=== PATIENT | female | born 1965 | race Caucasian/White ===

== ENCOUNTER 2017-11-16 09:36 | Inpatient (IN) | payer MEDICARE ==
[~2017-11-16] VITALS: Ht 160 cm; Wt 54.1 kg
[2017-11-16 10:29] LABS: HEMATOCRIT 42.7 % (36.0-47.0); HEMOGLOBIN 13.8 g/dL (12.0-15.5); MEAN CORPUSCULAR HEMOGLOBIN 32 pg (25-35); MEAN CORPUSCULAR HGB CONC 32 g/dL (31-37); MEAN CORPUSCULAR VOLUME 97 fL (79-100); PLATELET COUNT 286 x10^3/uL (140-400); RED BLOOD COUNT 4.38 x10^6/uL (3.50-5.40); RED CELL DISTRIBUTION WIDTH 13.6 % (11.5-14.5); WHITE BLOOD COUNT 8.8 x10^3/uL (4.0-11.0)
[2017-11-16 10:37] LABS: ALBUMIN 3.8 g/dL (3.4-5.0); ALBUMIN/GLOBULIN RATIO 1.2 (1.0-1.7); CALCIUM 9.1 mg/dL (8.5-10.1); CREATININE 0.8 mg/dL (0.6-1.0); GFR 74.7; MAGNESIUM 1.8 mg/dL (1.8-2.4); POTASSIUM 3.7 mmol/L (3.5-5.1); TOTAL BILIRUBIN 0.3 mg/dL (0.2-1.0)
[2017-11-16 10:41] LABS: % BASOS 3 % (0-3); % EOS 1 % (0-5); % LYMPHS 33 % (24-48); % MONOS 7 % (0-10); % SEGS 56 % (35-66)
[2017-11-16 10:42] LABS: PLT ESTIMATE ADEQUATE (ADEQUATE)
--- NOTE | 2017-11-16 11:04 | EKG ---
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
[2017-11-16 11:09] LABS: BARBITURATES NEG (NEG); BENZODIAZEPINES NEG (NEG); CANNABINOIDS NEG (NEG); COCAINE NEG (NEG); METHADONE NEG (NEG); OPIATES NEG (NEG); PHENCYCLIDINE NEG (NEG)
[2017-11-16 11:11] LABS: BACTERIA,URINE FEW /HPF (0-FEW); BILIRUBIN,URINE NEG (NEG); CLARITY,URINE HAZY; COLOR,URINE YELLOW; GLUCOSE,URINE NEG (NEG); NITRITE,URINE NEG (NEG); RBC,URINE RARE /HPF (0-2); SQUAMOUS EPITHELIAL CELL,UR FEW /LPF; UROBILINOGEN,URINE 0.2 mg/dL (0.2 mg/dL)
[2017-11-16 11:12] LABS: AMPHETAMINE/METHAMPHETAMINE NEG (NEG)
--- NOTE | 2017-11-16 15:10 | PHYS DOC ---
Past History Past Medical History: Schizophrenia, Other Past Surgical History: Alcohol Use: None Drug Use: None Adult General Chief Complaint Chief Complaint: Neads medical clearance HPI HPI 52-year-old female patient was seen at [facility] today and sent to ER for medical clearance to admit to [facility] regarding increasing of psychosis. History is limited because of patient psychiatric problem but she stated she lives with his sister and her sister called police this morning because she had arguments with her and [facility] recommended she goes to inpatient treatment. Patient denies taking any medication and having any psych problem. Patient has flight of idea and talking about nonsense subjects butt denies hallucination and suicidal and homicidal ideation. Review of Systems Review of Systems Constitutional: Denies fever or chills [] Eyes: Denies change in visual acuity, redness, or eye pain [] HENT: Denies nasal congestion or sore throat [] Respiratory: Denies cough or shortness of breath [] Cardiovascular: No additional information not addressed in HPI [] GI: Denies abdominal pain, nausea, vomiting, bloody stools or diarrhea [] : Denies dysuria or hematuria [] Musculoskeletal: Denies back pain or joint pain [] Integument: Denies rash or skin lesions [] Neurologic: Denies headache, focal weakness or sensory changes [] Endocrine: Denies polyuria or polydipsia [] All other systems were reviewed and found to be within normal limits, except as documented in this note. Allergies Allergies Allergies Coded Allergies Type Severity Reaction Last Updated Verified No Known Drug Allergies 08/22/15 No Physical Exam Physical Exam Constitutional: Well nourished, no acute distress, non-toxic appearance, anxious. [] HENT: Normocephalic, atraumatic, bilateral external ears normal, oropharynx moist, no oral exudates, nose normal. [] Eyes: PERRLA, EOMI, conjunctiva normal, no discharge. [] Neck: Normal range of motion, no tenderness, supple, no stridor. [] Cardiovascular:Heart rate regular rhythm, no murmur [] Lungs & Thorax: Bilateral breath sounds clear to auscultation [] Abdomen: Bowel sounds normal, soft, no tenderness, no masses, no pulsatile masses. [] Skin: Warm, dry, no erythema, no rash. [] Back: No tenderness, no CVA tenderness. [] Extremities: No tenderness, no cyanosis, no clubbing, ROM intact, no edema. [] Neurologic: Alert and oriented X 3, normal motor function, normal sensory function, no focal deficits noted. [] Psychologic: Anxious, loss of idea, paranoid, psychosis Current Patient Data Vital Signs Vital Signs Date Time Temp Pulse Resp B/P (MAP) Pulse Ox O2 Delivery O2 Flow Rate FiO2 11/16/17 09:45 97.7 94 22 99 Room Air Lab Results Laboratory Tests Test 11/16/17 10:05 11/16/17 10:45 White Blood Count 8.8 x10^3/uL (4.0-11.0) Red Blood Count 4.38 x10^6/uL (3.50-5.40) Hemoglobin 13.8 g/dL (12.0-15.5) Hematocrit 42.7 % (36.0-47.0) Mean Corpuscular Volume 97 fL (79-100) Mean Corpuscular Hemoglobin 32 pg (25-35) Mean Corpuscular Hemoglobin Concent 32 g/dL (31-37) Red Cell Distribution Width 13.6 % (11.5-14.5) Platelet Count 286 x10^3/uL (140-400) Segmented Neutrophils % 56 % (35-66) Lymphocytes % 33 % (24-48) Monocytes % 7 % (0-10) Eosinophils % 1 % (0-5) Basophils % 3 % (0-3) Platelet Estimate Adequate (ADEQUATE) Large Platelets Occ Giant Platelets Occ Sodium Level 141 mmol/L (136-145) Potassium Level 3.7 mmol/L (3.5-5.1) Chloride Level 105 mmol/L (98-107) Carbon Dioxide Level 27 mmol/L (21-32) Anion Gap 9 (6-14) Blood Urea Nitrogen 9 mg/dL (7-20) Creatinine 0.8 mg/dL (0.6-1.0) Estimated GFR (Cockcroft-Gault) 74.7 BUN/Creatinine Ratio 11 (6-20) Glucose Level 99 mg/dL (70-99) Calcium Level 9.1 mg/dL (8.5-10.1) Magnesium Level 1.8 mg/dL (1.8-2.4) Total Bilirubin 0.3 mg/dL (0.2-1.0) Aspartate Amino Transferase (AST) 14 U/L (15-37) L Alanine Aminotransferase (ALT) 15 U/L (14-59) Alkaline Phosphatase 81 U/L (46-116) Total Protein 7.0 g/dL (6.4-8.2) Albumin 3.8 g/dL (3.4-5.0) Albumin/Globulin Ratio 1.2 (1.0-1.7) Ethyl Alcohol Level < 10 mg/dL (0-10) Urine Collection Type Unknown Urine Color Yellow Urine Clarity Hazy Urine pH 5.5 Urine Specific [place] 1.015 Urine Protein Neg (NEG-TRACE) Urine Glucose (UA) Neg mg/dL (NEG) Urine Ketones (Stick) Neg mg/dL (NEG) Urine Blood Neg (NEG) Urine Nitrite Neg (NEG) Urine Bilirubin Neg (NEG) Urine Urobilinogen Dipstick 0.2 mg/dL (0.2 mg/dL) Urine Leukocyte Esterase Trace (NEG) Urine RBC Rare /HPF (0-2) Urine WBC 1-4 /HPF (0-4) Urine Squamous Epithelial Cells Few /LPF Urine Bacteria Few /HPF (0-FEW) Urine Mucus Slight /LPF Urine Opiates Screen Neg (NEG) Urine Methadone Screen Neg (NEG) Urine Barbiturates Neg (NEG) Urine Phencyclidine Screen Neg (NEG) Urine Amphetamine/Methamphetamine Neg (NEG) Urine Benzodiazepines Screen Neg (NEG) Urine Cocaine Screen Neg (NEG) Urine Cannabinoids Screen Neg (NEG) Urine Ethyl Alcohol Neg (NEG) EKG EKG [] Radiology/Procedures Radiology/Procedures [] Course & Med Decision Making Course & Med Decision Making Pertinent Labs studies reviewed. (See chart for details) Evaluation of patient in ER showed 52-year-old female patient sent from [facility] for medical clearance with having placement in [facility] in [facility] but constant but [facility] staff states they don 't have any beds for this patient or any contact from [facility]. Patient had unremarkable physical exam except for psychosis and paranoia. Labs was unremarkable. Patient was evaluated by Tele psych[ with suggestion of inpatient admission. [facility] Patient informed about plan of care and agreed with hospitalization. Dragon Disclaimer Dragon Disclaimer This electronic medical record was generated, in whole or in part, using a voice recognition dictation system. Departure Departure: Impression: Primary Impression: Delusion Additional Impression: Paranoia Disposition: 02 XFER SHT-TRM HOSP ([facility]) Condition: IMPROVED Referrals: ZEUS MOMIN MD (PCP) Problem Qualifiers ADDISON HOANG MD Nov 16, 2017 15:10
[2017-11-16] MEDS ORDERED: METHYL SALICYLATE/MENTHOL TOPICAL OINTMENT 29GM TUBE. TP PRN (17:00)
[2017-11-16] MEDS ORDERED: MAG HYDROX/AL HYDROX/SIMETH 30 ML ORAL.SUSP PO PRN (17:00)
[2017-11-16] MEDS ORDERED: MAGNESIUM HYDROXIDE 2,400 MG/30 ML ORAL.SUSP. PO PRN (17:00)
[2017-11-16] MEDS ORDERED: ACETAMINOPHEN 325 MG TABLET PO PRN (17:00)
[2017-11-16 17:02] VITALS: BP 99/61
--- NOTE | 2017-11-16 17:27 | PDOC ---
Exam Note: Mario Note: Please also refer to the separate dictated note~for this date of service dictated separately.~Patient seen individually. Discussed the patient with Nursing staff reviewed the chart.~Reviewed interim history and current functioning. Reviewed vital signs,~Labs/ Radiology~and current medications noted below. Continue current treatment with the changes noted in the dictated addendum note Assessment: Vital Signs: Vital Signs Date Time Temp Pulse Resp B/P (MAP) Pulse Ox O2 Delivery O2 Flow Rate FiO2 11/16/17 17:02 97.7 97 18 99/61 (74) 97 Room Air Labs: Laboratory Tests Test 11/16/17 10:05 11/16/17 10:45 White Blood Count 8.8 x10^3/uL (4.0-11.0) Red Blood Count 4.38 x10^6/uL (3.50-5.40) Hemoglobin 13.8 g/dL (12.0-15.5) Hematocrit 42.7 % (36.0-47.0) Mean Corpuscular Volume 97 fL (79-100) Mean Corpuscular Hemoglobin 32 pg (25-35) Mean Corpuscular Hemoglobin Concent 32 g/dL (31-37) Red Cell Distribution Width 13.6 % (11.5-14.5) Platelet Count 286 x10^3/uL (140-400) Segmented Neutrophils % 56 % (35-66) Lymphocytes % 33 % (24-48) Monocytes % 7 % (0-10) Eosinophils % 1 % (0-5) Basophils % 3 % (0-3) Platelet Estimate Adequate (ADEQUATE) Large Platelets Occ Giant Platelets Occ Sodium Level 141 mmol/L (136-145) Potassium Level 3.7 mmol/L (3.5-5.1) Chloride Level 105 mmol/L (98-107) Carbon Dioxide Level 27 mmol/L (21-32) Anion Gap 9 (6-14) Blood Urea Nitrogen 9 mg/dL (7-20) Creatinine 0.8 mg/dL (0.6-1.0) Estimated GFR (Cockcroft-Gault) 74.7 BUN/Creatinine Ratio 11 (6-20) Glucose Level 99 mg/dL (70-99) Calcium Level 9.1 mg/dL (8.5-10.1) Magnesium Level 1.8 mg/dL (1.8-2.4) Total Bilirubin 0.3 mg/dL (0.2-1.0) Aspartate Amino Transferase (AST) 14 U/L (15-37) L Alanine Aminotransferase (ALT) 15 U/L (14-59) Alkaline Phosphatase 81 U/L (46-116) Total Protein 7.0 g/dL (6.4-8.2) Albumin 3.8 g/dL (3.4-5.0) Albumin/Globulin Ratio 1.2 (1.0-1.7) Ethyl Alcohol Level < 10 mg/dL (0-10) Urine Collection Type Unknown Urine Color Yellow Urine Clarity Hazy Urine pH 5.5 Urine Specific [place] 1.015 Urine Protein Neg (NEG-TRACE) Urine Glucose (UA) Neg mg/dL (NEG) Urine Ketones (Stick) Neg mg/dL (NEG) Urine Blood Neg (NEG) Urine Nitrite Neg (NEG) Urine Bilirubin Neg (NEG) Urine Urobilinogen Dipstick 0.2 mg/dL (0.2 mg/dL) Urine Leukocyte Esterase Trace (NEG) Urine RBC Rare /HPF (0-2) Urine WBC 1-4 /HPF (0-4) Urine Squamous Epithelial Cells Few /LPF Urine Bacteria Few /HPF (0-FEW) Urine Mucus Slight /LPF Urine Opiates Screen Neg (NEG) Urine Methadone Screen Neg (NEG) Urine Barbiturates Neg (NEG) Urine Phencyclidine Screen Neg (NEG) Urine Amphetamine/Methamphetamine Neg (NEG) Urine Benzodiazepines Screen Neg (NEG) Urine Cocaine Screen Neg (NEG) Urine Cannabinoids Screen Neg (NEG) Urine Ethyl Alcohol Neg (NEG) Current Medications: Meds: Current Medications Acetaminophen (Tylenol) 650 mg PRN Q6HRS PRN PO PAIN / TEMP; Start 11/16/17 at 17:00 Multi-Ingredient Ointment (Analgesic [place]) 1 raymon PRN QID PRN TP MUSCLE PAIN; Start 11/16/17 at 17:00 Al Hydroxide/Mg Hydroxide (Mylanta Plus Xs) 15 ml PRN AFTMEALHC PRN PO DYSPEPSIA; Start 11/16/17 at 17:00 Magnesium Hydroxide (Milk Of Magnesia) 2,400 mg PRN QHS PRN PO CONSTIPATION; Start 11/16/17 at 17:00 Nicotine (Nicoderm Cq 21mg) 1 patch DAILY TD ; Start 11/17/17 at 09:00 I have reviewed the current psychotropics carefully including drug interactions. Risk benefit ratio favors no change other than as noted in my dictated progress note. Diagnosis: Problems: (1) Anxiety disorder (2) Schizoaffective disorder, chronic condition with acute exacerbation (3) Bipolar 1 disorder, mixed, moderate PERRY ALFARO MD Nov 16, 2017 17:27
[2017-11-16] MEDS ORDERED: traZODone 50 MG TABLET. PO PRN (17:45)
--- NOTE | 2017-11-16 20:03 | PDOC ---
Exam Note: Mario Note: Please also refer to the separate dictated note~for this date of service dictated separately.~Patient seen individually. Discussed the patient with Nursing staff reviewed the chart.~Reviewed interim history and current functioning. Reviewed vital signs,~Labs/ Radiology~and current medications noted below. Continue current treatment with the changes noted in the dictated addendum note Assessment: Vital Signs: Vital Signs Date Time Temp Pulse Resp B/P (MAP) Pulse Ox O2 Delivery O2 Flow Rate FiO2 11/16/17 17:02 97.7 97 18 99/61 (74) 97 Room Air Labs: Laboratory Tests Test 11/16/17 10:05 11/16/17 10:45 White Blood Count 8.8 x10^3/uL (4.0-11.0) Red Blood Count 4.38 x10^6/uL (3.50-5.40) Hemoglobin 13.8 g/dL (12.0-15.5) Hematocrit 42.7 % (36.0-47.0) Mean Corpuscular Volume 97 fL (79-100) Mean Corpuscular Hemoglobin 32 pg (25-35) Mean Corpuscular Hemoglobin Concent 32 g/dL (31-37) Red Cell Distribution Width 13.6 % (11.5-14.5) Platelet Count 286 x10^3/uL (140-400) Segmented Neutrophils % 56 % (35-66) Lymphocytes % 33 % (24-48) Monocytes % 7 % (0-10) Eosinophils % 1 % (0-5) Basophils % 3 % (0-3) Platelet Estimate Adequate (ADEQUATE) Large Platelets Occ Giant Platelets Occ Sodium Level 141 mmol/L (136-145) Potassium Level 3.7 mmol/L (3.5-5.1) Chloride Level 105 mmol/L (98-107) Carbon Dioxide Level 27 mmol/L (21-32) Anion Gap 9 (6-14) Blood Urea Nitrogen 9 mg/dL (7-20) Creatinine 0.8 mg/dL (0.6-1.0) Estimated GFR (Cockcroft-Gault) 74.7 BUN/Creatinine Ratio 11 (6-20) Glucose Level 99 mg/dL (70-99) Calcium Level 9.1 mg/dL (8.5-10.1) Magnesium Level 1.8 mg/dL (1.8-2.4) Total Bilirubin 0.3 mg/dL (0.2-1.0) Aspartate Amino Transferase (AST) 14 U/L (15-37) L Alanine Aminotransferase (ALT) 15 U/L (14-59) Alkaline Phosphatase 81 U/L (46-116) Total Protein 7.0 g/dL (6.4-8.2) Albumin 3.8 g/dL (3.4-5.0) Albumin/Globulin Ratio 1.2 (1.0-1.7) Ethyl Alcohol Level < 10 mg/dL (0-10) Urine Collection Type Unknown Urine Color Yellow Urine Clarity Hazy Urine pH 5.5 Urine Specific [place] 1.015 Urine Protein Neg (NEG-TRACE) Urine Glucose (UA) Neg mg/dL (NEG) Urine Ketones (Stick) Neg mg/dL (NEG) Urine Blood Neg (NEG) Urine Nitrite Neg (NEG) Urine Bilirubin Neg (NEG) Urine Urobilinogen Dipstick 0.2 mg/dL (0.2 mg/dL) Urine Leukocyte Esterase Trace (NEG) Urine RBC Rare /HPF (0-2) Urine WBC 1-4 /HPF (0-4) Urine Squamous Epithelial Cells Few /LPF Urine Bacteria Few /HPF (0-FEW) Urine Mucus Slight /LPF Urine Opiates Screen Neg (NEG) Urine Methadone Screen Neg (NEG) Urine Barbiturates Neg (NEG) Urine Phencyclidine Screen Neg (NEG) Urine Amphetamine/Methamphetamine Neg (NEG) Urine Benzodiazepines Screen Neg (NEG) Urine Cocaine Screen Neg (NEG) Urine Cannabinoids Screen Neg (NEG) Urine Ethyl Alcohol Neg (NEG) Current Medications: Meds: Current Medications Acetaminophen (Tylenol) 650 mg PRN Q6HRS PRN PO PAIN / TEMP; Start 11/16/17 at 17:00 Multi-Ingredient Ointment (Analgesic [place]) 1 raymon PRN QID PRN TP MUSCLE PAIN; Start 11/16/17 at 17:00 Al Hydroxide/Mg Hydroxide (Mylanta Plus Xs) 15 ml PRN AFTMEALHC PRN PO DYSPEPSIA; Start 11/16/17 at 17:00 Magnesium Hydroxide (Milk Of Magnesia) 2,400 mg PRN QHS PRN PO CONSTIPATION; Start 11/16/17 at 17:00 Nicotine (Nicoderm Cq 21mg) 1 patch DAILY TD ; Start 11/17/17 at 09:00 Ziprasidone (Geodon) 20 mg QHS PO Last administered on 11/16/17t 19:54; Start 11/16/17 at 21:00; Stop 11/17/17 at 05:00 Ziprasidone (Geodon) 40 mg QHS PO ; Start 11/17/17 at 21:00 Olanzapine (ZyPREXA ZYDIS) 5 mg PRN Q2HR PRN PO psychosis; Start 11/16/17 at 17:45 Trazodone HCl (Desyrel) 50 mg PRN QHS PRN PO insomnia ; Start 11/16/17 at 17: 45 I have reviewed the current psychotropics carefully including drug interactions. Risk benefit ratio favors no change other than as noted in my dictated progress note. Diagnosis: Problems: (1) Schizophrenia (2) Paranoia (3) Delusion (4) Anxiety disorder (5) Schizoaffective disorder, chronic condition with acute exacerbation (6) Bipolar 1 disorder, mixed, moderate PERRY ALFARO MD Nov 16, 2017 20:03
[2017-11-16] MEDS ORDERED: ZIPRASIDONE 20 MG CAPSULE. PO SCH (21:00)
--- NOTE | 2017-11-16 21:46 | HP ---
ADMIT DATE: 11/16/2017 PSYCHIATRIC ADMISSION HISTORY/EVALUATION IDENTIFYING DATA: The patient is a 52-year-old female who was referred to us from the Emergency Room at [facility] where she presented directly from the [facility] after she went there on account of worsening psychotic symptoms while living at home with her sister. Reportedly, the patient has not been taking her antipsychotic medications for the past 1 year or so and more recently getting increasingly paranoid, delusional, specifically about family and burials amongst other things. She has been disorganized, forgetful. Behaviors have been deemed dangerous, has failed outpatient psychiatric interventions due to noncompliance, referred for inpatient psychiatric stabilization. CHIEF COMPLAINT: "I am on disability. 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 HISTORY OF PRESENT ILLNESS: The patient has a history of schizoaffective disorder, bipolar type versus bipolar disorder versus schizophrenia. She had been followed at the [facility] by Dr. Pond in the past, but has not been back for a couple of years. She has been living at home with her sister, barely functioning, but over the past few weeks, she has been increasingly psychotic. She has lost about 15-pound weight, having increasing insomnia, disorganization. No active suicidal or homicidal ideation. The patient continues to have some mood swings. PAST PSYCHIATRIC HISTORY: The patient states she has been treated on Geodon and Abilify in the past amongst other psychotropics, but we will have to request records from the [facility] for details. PAST MEDICAL HISTORY: Positive for . DRUG ALLERGIES: Negative. CURRENT PSYCHOTROPICS: None at this time. FAMILY HISTORY: Noncontributory. SOCIAL HISTORY: No alcohol, drug abuse, physical, sexual or elder abuse history, not known to be a perpetrator. REACTION TO HOSPITALIZATION: The patient accepting of these assets cognitively reasonably intact, supportive sister. MENTAL STATUS EXAMINATION: The patient seen individually in her room shortly after she arrived on the unit. She is oriented to time, place, situation, quite disorganized, paranoid, suspicious. Associations somewhat loose, at times tangential. Speech is otherwise coherent. Abstraction fair, computation impaired, language function intact. Attention span short. No active suicidal or homicidal ideation. LABORATORY DATA: Reviewed. IMPRESSION: Bipolar 1 disorder, mixed with psychotic features; psychotic disorder, unspecified; delusional disorder; anxiety disorder, unspecified. Rest diagnoses as above. PLAN: Admit to Geropsychiatry unit at [facility]. I will see the patient daily individually from a psychiatric standpoint, medical followup per Dr. Valle/Dr. Reyes. [facility]. Start Geodon 20 mg at bedtime per day, increasing to 40 mg p.o. at bedtime starting tomorrow. We will increase further thereafter. Add trazodone 50 mg at bedtime p.r.n. insomnia, may repeat x 1. Zyprexa 2.5 mg q. 2 hours p.r.n. psychosis, agitation, maximum 10 mg in 24 hours. Consider Depakote as a mood stabilizer. Further decisions after baseline assessment and records from the [facility]. MAN Thad ALFARO MD DR: DEREK/jenna JOB#: [id number] / [id number]
[2017-11-17 01:07] LABS: HEMOGLOBIN A1C 5.1 % (4.8-5.6); T3 TOTAL 87 ng/dL (71-180); THYROXINE 6.6 ug/dL (4.5-12.0)
[2017-11-17 05:49] VITALS: BP 102/42
[2017-11-17] MEDS: NICOTINE 21MG PATCH. TD SCH (08:44)
[2017-11-17] MEDS ORDERED: PNEUMOCOCCAL VAX SCREEN. MC ONE (09:00)
[2017-11-17] MEDS ORDERED: PNEUMOC CONJ VACC 23-VALENT 0.5 ML VIAL. VAX IM ONE (09:00)
[2017-11-17] MEDS ORDERED: FLU VACC QS2017-18 (36MOS+)/PF 0.5 ML SYRINGE. VAX IM ONE (09:00)
[2017-11-17] MEDS ORDERED: Influenza vaccine per PROTOCOL. MC PRN (09:00)
[2017-11-17 15:33] VITALS: BP 105/64
[2017-11-17] MEDS ORDERED: IOHEXOL 300 MG/ML 75 ML VIAL. IV ONE (16:30)
[2017-11-17] MEDS: ZIPRASIDONE 40 MG CAPSULE. PO SCH (20:18)
--- NOTE | 2017-11-17 21:18 | PDOC ---
Exam Note: Mario Note: Please also refer to the separate dictated note~for this date of service dictated separately.~Patient seen individually. Discussed the patient with Nursing staff reviewed the chart.~Reviewed interim history and current functioning. Reviewed vital signs,~Labs/ Radiology~and current medications noted below. Continue current treatment with the changes noted in the dictated addendum note Assessment: Vital Signs: Vital Signs Date Time Temp Pulse Resp B/P (MAP) Pulse Ox O2 Delivery O2 Flow Rate FiO2 11/17/17 15:33 97.5 89 20 105/64 (78) 100 11/16/17 17:02 Room Air I&O Intake and Output 11/17/17 07:00 Intake Total 481 ml Balance 481 ml Intake Oral 481 ml Current Medications: Meds: Current Medications Acetaminophen (Tylenol) 650 mg PRN Q6HRS PRN PO PAIN / TEMP; Start 11/16/17 at 17:00 Multi-Ingredient Ointment (Analgesic [place]) 1 raymon PRN QID PRN TP MUSCLE PAIN; Start 11/16/17 at 17:00 Al Hydroxide/Mg Hydroxide (Mylanta Plus Xs) 15 ml PRN AFTMEALHC PRN PO DYSPEPSIA; Start 11/16/17 at 17:00 Magnesium Hydroxide (Milk Of Magnesia) 2,400 mg PRN QHS PRN PO CONSTIPATION; Start 11/16/17 at 17:00 Nicotine (Nicoderm Cq 21mg) 1 patch DAILY TD Last administered on 11/17/17 08 :44; Start 11/17/17 at 09:00 Ziprasidone (Geodon) 20 mg QHS PO Last administered on 11/16/17 19:54; Start 11/16/17 at 21:00; Stop 11/17/17 at 05:01; Status DC Ziprasidone (Geodon) 40 mg QHS PO Last administered on 11/17/17 20:18; Start 11/17/17 at 21:00; Stop 11/18/17 at 23:00 Olanzapine (ZyPREXA ZYDIS) 5 mg PRN Q2HR PRN PO psychosis; Start 11/16/17 at 17:45 Trazodone HCl (Desyrel) 50 mg PRN QHS PRN PO insomnia ; Start 11/16/17 at 17: 45 Pneumococcal Polyvalent Vaccine (Do NOT chart on this entry -- for MONITORING) 1 each 1X ONCE MC ; Start 11/17/17 at 09:00; Stop 11/17/17 at 09:00; Status DC Info (FLU VACCINE per PROTOCOL) 1 ea PRN 1X PRN MC PER PROTOCOL; Start at 09:00; Stop 11/17/17 at 09:00; Status DC Pneumococcal Polyvalent Vaccine (Pneumovax 23) 0.5 ml ONCE ONCE VAX IM Last administered on 11/17/17 08:47; Start 11/17/17 at 09:00; Stop 11/17/17 at 09 :01; Status DC Influenza Virus Vaccine Quadrival (Fluarix Quad [id number] Syringe) 0.5 ml ONCE ONCE VAX IM Last administered on 11/17/17 08:48; Start 11/17/17 at 09:00; Stop 11/17/17 at 09:01; Status DC Iohexol (Omnipaque 300 Mg/ml) 75 ml 1X ONCE IV ; Start 11/17/17 at 16:30; Stop 11/17/17 at 16:31; Status DC Ziprasidone (Geodon) 40 mg BID PO ; Start 11/19/17 at 09:00 I have reviewed the current psychotropics carefully including drug interactions. Risk benefit ratio favors no change other than as noted in my dictated progress note. Diagnosis: Problems: (1) Delusion (2) Paranoia (3) Anxiety disorder (4) Schizoaffective disorder, chronic condition with acute exacerbation (5) Bipolar 1 disorder, mixed, moderate (6) Schizophrenia PERRY ALFARO MD Nov 17, 2017 21:18
--- NOTE | 2017-11-18 05:24 | CONS ---
DATE OF CONSULTATION: 11/17/2017 REASON FOR CONSULTATION: Medical management. HISTORY OF PRESENT ILLNESS: The patient is a 52-year-old female patient, who was seen at the [facility] and was sent to the Emergency Room of [facility] where she presented directly from [facility] after she went there on account of worsening psychotic symptoms while living at home with her sister. Reportedly the patient has not been taking her antipsychotic medication for the past year or so and more recently getting increasingly paranoid, delusional, especially about her family burials amongst other things. She has been disorganized and forgetful. Behaviors have been deemed dangerous. Has failed outpatient psychiatric intervention due to noncompliance and was admitted to [facility] psychiatric stabilization. The patient has a history of schizoaffective disorder of bipolar type versus bipolar disorder versus schizophrenia. Apparently, she is followed at the [facility] by Dr. Vergara in the past but has not been back for a couple of years. She lives at home with her sister, barely functioning, but over the past few weeks has been increasingly psychotic. She lost about 15 pounds weight, having increasing insomnia and disorganization. However, she did not suppress any active suicidal or homicidal ideation. PAST PSYCHIATRIC HISTORY: Significant for bipolar type versus schizophrenia. PAST MEDICAL HISTORY: Significant for probably COPD and unintentional weight loss. FAMILY HISTORY: Noncontributory. SOCIAL HISTORY: She lives with her sister. She apparently continues to smoke, but does not drink alcohol or use any recreational drugs. REVIEW OF SYSTEMS: As per history of present illness. PHYSICAL EXAMINATION GENERAL: When I examined her this afternoon, she was sitting in the chair comfortably in no apparent distress. She was somewhat pale, but cachectic, but no jaundice, cyanosis, or thyromegaly. No jugular venous distension. No limb edema. VITAL SIGNS: Her heart rate was 89, blood pressure was 105/64, temperature was 97.5, respiratory rate 20, and oxygen saturation was 100%. HEAD, EYES, EARS, NOSE AND THROAT: Showed normocephalic, atraumatic. NECK: Supple. HEART: Showed normal first and second sounds. No gallop, rub, or murmur. CHEST: Showed central trachea, equally reduced expansion, reduced air entry, vesicular breath sounds. I could not appreciate any crepitation or rhonchi. ABDOMEN: Scaphoid, soft, nontender. NEUROLOGIC: She was awake, alert, responding appropriately. All cranial nerves intact. She moves extremities without difficulty. She ambulates without assistance or assistive devices. EXTREMITIES: Showed prominent clubbing, but no cyanosis or edema. LABORATORY DATA: Her lab work showed that her white cell count was 8,800, hemoglobin 13.8, hematocrit 42.7, MCV 97 and platelet count 286,000. Her chemistry showed a serum sodium of 141, potassium 3.7, chloride 105, bicarbonate 27, anion gap of 9, BUN 9, creatinine 0.8. Estimated GFR was 74 mL per minute. Her glucose was 99, calcium was 9.1, magnesium 1.8. Total bilirubin, AST, ALT, alkaline phosphatase were normal. Total protein of 7, albumin 3.8. Her hemoglobin A1c was 5.1. Her serum iron was 91, TIBC was 276, percent saturation was 33. Her triglycerides were 116, total cholesterol was 193, LDL was 99, VLDL was 23, HDL was 71, and the ratio was only 2. Her vitamin B12 was 338 picograms per mL, 25-hydroxyvitamin D was 31.8. Total T4 was 6.6, total T3 was 87. Her urine was yellow, hazy with a pH of 5.5, specific gravity of 1.015. The urine was negative for protein, glucose, ketones, blood, nitrite and leukocyte esterase. Rare rbc's, 1-4 wbc's, very few bacteria. Her toxicology screen was essentially negative and her RPR was nonreactive. On a chest x-ray done in 2015, there was a description of a mass-like suprahilar density identified could be secondary to fibrosis, scarring or neoplasm. At that time, the radiologist recommended either a PET scan or a followup x-ray to make sure that there is no further worsening. The CT scan done at that time showed that she has severe emphysema. She has several small bilateral pulmonary nodules, the largest of which was a 5 mm within the right lower lobe. In the absence of studies to confirm long-term stability, short-term followup is recommended. Given the patient has unintentional weight loss and prominent clubbing and she is a smoker, I recommend that a CT scan of the chest with contrast should be done to make sure that we are not missing any abnormality given all these findings in 2015. Thank you, Dr. Valerio, for allowing me to participate in the care of this patient. CHEPE MIRELES MD DR: Steffen JOB#: [id number] / [id number]
[2017-11-18 05:40] VITALS: BP 96/64
[2017-11-18] MEDS: NICOTINE 21MG PATCH. TD SCH (07:45)
--- NOTE | 2017-11-18 08:11 | RAD ---
Indication: Early onset dementia. Axial imaging through the brain was performed without contrast. No prior studies are available for comparison. The ventricles and sulci are within normal limits. No sulcal effacement, midline shift or hemorrhage is detected. Cisterns are patent. The visualized paranasal sinuses are clear. Impression: No acute intracranial process is detected. PQRS Compliance Statement: One or more of the following individualized dose reduction techniques were utilized for this examination: 1. Automated exposure control 2. Adjustment of the mA and/or kV according to patient size 3. Use of iterative reconstruction technique
--- NOTE | 2017-11-18 08:22 | RAD ---
Indication: Weight loss and prior abnormal CT chest. Axial imaging through the chest was performed after the administration of intravenous contrast and utilizing the CT angiography protocol. Multiplanar, 3-D and MIP reformations were also performed. Correlation is made with prior CT chest from 08/22/2015. Evaluation of the pulmonary arterial system is without evidence of thromboembolism. No definite filling defect is identified within the central, lobar or segmental pulmonary arterial branches. The thoracic aorta is nonaneurysmal. No dissection is seen. No definite pericardial or pleural fluid is detected. Severe emphysematous changes throughout both lungs persists. The soft tissue density in the right suprahilar paramediastinal location persists but does appear to be slightly smaller. This is most likely owing to improved inflammatory component associated with a chronic fibrotic mass. Previously noted groundglass and nodular infiltrate in the left lower lobe has resolved. The previously seen bilateral lower lobe mucous plugging has resolved. The degree of bronchial wall thickening has improved. Subpleural nodule posterior lateral left lower lobe is stable. Impression: 1. No evidence of pulmonary embolism or thoracic aortic dissection. 2. Overall improvement in infectious/inflammatory changes when compared with exam from July 2015. Right suprahilar paramediastinal soft tissue masslike density has decreased slightly in size. The bilateral lower lobe mucous plugging and nodular infiltrate in the left lower lobe has resolved. 3. Severe emphysematous changes. PQRS Compliance Statement: One or more of the following individualized dose reduction techniques were utilized for this examination: 1. Automated exposure control 2. Adjustment of the mA and/or kV according to patient size 3. Use of iterative reconstruction technique
[2017-11-18 15:54] VITALS: BP 121/60
[2017-11-18] MEDS: ZIPRASIDONE 40 MG CAPSULE. PO SCH (19:49)
--- NOTE | 2017-11-18 20:00 | PDOC ---
Exam Note: Mario Note: Please also refer to the separate dictated note~for this date of service dictated separately.~Patient seen individually. Discussed the patient with Nursing staff reviewed the chart.~Reviewed interim history and current functioning. Reviewed vital signs,~Labs/ Radiology~and current medications noted below. Continue current treatment with the changes noted in the dictated addendum note Assessment: Vital Signs: Vital Signs Date Time Temp Pulse Resp B/P (MAP) Pulse Ox O2 Delivery O2 Flow Rate FiO2 11/18/17 15:54 97.1 96 18 121/60 (80) 100 Room Air I&O Intake and Output 11/18/17 07:00 Intake Total 1440 ml Balance 1440 ml Intake Oral 1440 ml # Bowel Movements 1 Current Medications: Meds: Current Medications Acetaminophen (Tylenol) 650 mg PRN Q6HRS PRN PO PAIN / TEMP; Start 11/16/17 at 17:00 Multi-Ingredient Ointment (Analgesic Reva) 1 raymon PRN QID PRN TP MUSCLE PAIN; Start 11/16/17 at 17:00 Al Hydroxide/Mg Hydroxide (Mylanta Plus Xs) 15 ml PRN AFTMEALHC PRN PO DYSPEPSIA; Start 11/16/17 at 17:00 Magnesium Hydroxide (Milk Of Magnesia) 2,400 mg PRN QHS PRN PO CONSTIPATION; Start 11/16/17 at 17:00 Nicotine (Nicoderm Cq 21mg) 1 patch DAILY TD Last administered on 11/18/17 07 :45; Start 11/17/17 at 09:00 Ziprasidone (Geodon) 20 mg QHS PO Last administered on 11/16/17 19:54; Start 11/16/17 at 21:00; Stop 11/17/17 at 05:01; Status DC Ziprasidone (Geodon) 40 mg QHS PO Last administered on 11/18/17 19:49; Start 11/17/17 at 21:00; Stop 11/18/17 at 23:00 Olanzapine (ZyPREXA ZYDIS) 5 mg PRN Q2HR PRN PO psychosis; Start 11/16/17 at 17:45 Trazodone HCl (Desyrel) 50 mg PRN QHS PRN PO insomnia ; Start 11/16/17 at 17: 45 Pneumococcal Polyvalent Vaccine (Do NOT chart on this entry -- for MONITORING) 1 each 1X ONCE MC ; Start 11/17/17 at 09:00; Stop 11/17/17 at 09:00; Status DC Info (FLU VACCINE per PROTOCOL) 1 ea PRN 1X PRN MC PER PROTOCOL; Start at 09:00; Stop 11/17/17 at 09:00; Status DC Pneumococcal Polyvalent Vaccine (Pneumovax 23) 0.5 ml ONCE ONCE VAX IM Last administered on 11/17/17 08:47; Start 11/17/17 at 09:00; Stop 11/17/17 at 09 :01; Status DC Influenza Virus Vaccine Quadrival (Fluarix Quad 1737-2422 Syringe) 0.5 ml ONCE ONCE VAX IM Last administered on 11/17/17 08:48; Start 11/17/17 at 09:00; Stop 11/17/17 at 09:01; Status DC Iohexol (Omnipaque 300 Mg/ml) 75 ml 1X ONCE IV Last administered on 07:22; Start 11/17/17 at 16:30; Stop 11/17/17 at 16:31; Status DC Ziprasidone (Geodon) 40 mg BID PO ; Start 11/19/17 at 09:00 I have reviewed the current psychotropics carefully including drug interactions. Risk benefit ratio favors no change other than as noted in my dictated progress note. Diagnosis: Problems: (1) Delusion (2) Paranoia (3) Anxiety disorder (4) Schizoaffective disorder, chronic condition with acute exacerbation (5) Bipolar 1 disorder, mixed, moderate (6) Schizophrenia PERRY ALFARO MD Nov 18, 2017 19:59
[2017-11-19 05:38] VITALS: BP 112/64
[2017-11-19] MEDS: NICOTINE 21MG PATCH. TD SCH (08:06)
[2017-11-19] MEDS: ZIPRASIDONE 40 MG CAPSULE. PO SCH ×2 (08:13→19:02)
[2017-11-19 16:08] VITALS: BP 91/61
[2017-11-19] MEDS ORDERED: traZODone 100 MG TABLET. PO PRN (18:45)
--- NOTE | 2017-11-19 22:11 | PDOC ---
Exam Note: Mario Note: Please also refer to the separate dictated note~for this date of service dictated separately.~Patient seen individually. Discussed the patient with Nursing staff reviewed the chart.~Reviewed interim history and current functioning. Reviewed vital signs,~Labs/ Radiology~and current medications noted below. Continue current treatment with the changes noted in the dictated addendum note Assessment: Vital Signs: Vital Signs Date Time Temp Pulse Resp B/P (MAP) Pulse Ox O2 Delivery O2 Flow Rate FiO2 11/19/17 16:08 97.9 101 20 91/61 (71) 97 11/18/17 15:54 Room Air I&O Intake and Output 11/19/17 07:00 Intake Total 1560 ml Balance 1560 ml Intake Oral 1560 ml Current Medications: Meds: Current Medications Acetaminophen (Tylenol) 650 mg PRN Q6HRS PRN PO PAIN / TEMP; Start 11/16/17 at 17:00 Multi-Ingredient Ointment (Analgesic [place]) 1 raymon PRN QID PRN TP MUSCLE PAIN; Start 11/16/17 at 17:00 Al Hydroxide/Mg Hydroxide (Mylanta Plus Xs) 15 ml PRN AFTMEALHC PRN PO DYSPEPSIA; Start 11/16/17 at 17:00 Magnesium Hydroxide (Milk Of Magnesia) 2,400 mg PRN QHS PRN PO CONSTIPATION; Start 11/16/17 at 17:00 Nicotine (Nicoderm Cq 21mg) 1 patch DAILY TD Last administered on 11/19/17 08 :06; Start 11/17/17 at 09:00 Ziprasidone (Geodon) 20 mg QHS PO Last administered on 11/16/17 19:54; Start 11/16/17 at 21:00; Stop 11/17/17 at 05:01; Status DC Ziprasidone (Geodon) 40 mg QHS PO Last administered on 11/18/17 19:49; Start 11/17/17 at 21:00; Stop 11/18/17 at 23:00; Status DC Olanzapine (ZyPREXA ZYDIS) 5 mg PRN Q2HR PRN PO psychosis; Start 11/16/17 at 17:45 Trazodone HCl (Desyrel) 50 mg PRN QHS PRN PO insomnia ; Start 11/16/17 at 17: 45; Stop 11/19/17 at 18:34; Status DC Pneumococcal Polyvalent Vaccine (Do NOT chart on this entry -- for MONITORING) 1 each 1X ONCE MC ; Start 11/17/17 at 09:00; Stop 11/17/17 at 09:00; Status DC Info (FLU VACCINE per PROTOCOL) 1 ea PRN 1X PRN MC PER PROTOCOL; Start at 09:00; Stop 11/17/17 at 09:00; Status DC Pneumococcal Polyvalent Vaccine (Pneumovax 23) 0.5 ml ONCE ONCE VAX IM Last administered on 11/17/17 08:47; Start 11/17/17 at 09:00; Stop 11/17/17 at 09 :01; Status DC Influenza Virus Vaccine Quadrival (Fluarix Quad [id number] Syringe) 0.5 ml ONCE ONCE VAX IM Last administered on 11/17/17 08:48; Start 11/17/17 at 09:00; Stop 11/17/17 at 09:01; Status DC Iohexol (Omnipaque 300 Mg/ml) 75 ml 1X ONCE IV Last administered on 07:22; Start 11/17/17 at 16:30; Stop 11/17/17 at 16:31; Status DC Ziprasidone (Geodon) 40 mg BID PO Last administered on 11/19/17 19:02; Start 11/19/17 at 09:00 Trazodone HCl (Desyrel) 100 mg PRN QHS PRN PO INSOMNIA, MAY REPEAT X1 Last administered on 11/19/17 19:03; Start 11/19/17 at 18:45 I have reviewed the current psychotropics carefully including drug interactions. Risk benefit ratio favors no change other than as noted in my dictated progress note. Diagnosis: Problems: (1) Delusion (2) Paranoia (3) Anxiety disorder (4) Schizoaffective disorder, chronic condition with acute exacerbation (5) Bipolar 1 disorder, mixed, moderate (6) Schizophrenia PERRY ALFARO MD Nov 19, 2017 22:11
--- NOTE | 2017-11-19 22:18 | PN ---
DATE: 11/17/2017 This is a late entry 11/17/2017 covers elements not covered in my initial note 11/17/2017. I met with the patient in the evening of 11/17/2017. CT head is unremarkable. She has some clubbing of the fingers, Dr. Reyes has ordered a chest x-ray and urine has ____ to culture. Geodon has been increased. She remains somewhat disorganized. REVIEW OF SYSTEMS: No CV, , pulmonary, eye system symptoms on review. MENTAL STATUS EXAM: Oriented to herself and situation. Speech coherent, met with her in her room. Abstraction fair, computation impaired, somewhat paranoid with loose associations. No active suicidal or homicidal ideation. Attention span short. Intellect average. Insight improving. Judgment intact to standard questioning. IMPRESSION: Schizoaffective disorder, bipolar type, mixed with psychotic features. Rest unchanged from admission note. PLAN: Continue to increase the Geodon. Check EKG. Await records from the [facility]. Continue trazodone. Adjust further as clinically indicated. MAN Thad ALFARO MD DR: DEREK/jenna JOB#: [id number] / [id number]
--- NOTE | 2017-11-19 22:24 | PN ---
DATE: 11/18/2017 This late entry for 11/18/2017 covers elements not covered in my initial note of 11/18/2017. SUBJECTIVE: The patient was staffed at a treatment team meeting with the entire team in the morning of 11/18/2017 and seen individually in the evening of 11/18/2017 in her room. [facility] has no past psychiatric records for her. She remains somewhat disorganized, paranoid. No suicidal or homicidal ideation. REVIEW OF SYSTEMS: No CV, , pulmonary, eye system symptoms on review. Complains of feeling cold at times. MENTAL STATUS EXAM: Oriented to herself, situation. Speech is coherent, abstraction fair, computation impaired, language function intact, attention span short. Mood and affect somewhat withdrawn. LABORATORY DATA: Reviewed. IMPRESSION: Schizoaffective disorder, bipolar type, mixed with psychotic features, in partial remission. Rest unchanged from initial note. PLAN: Continue current psychotropics. Adjust further as clinically indicated. PERRY ALFARO MD DR: DEREK/jenna JOB#: [id number] / [id number]
[2017-11-20 05:34] VITALS: BP 98/48
[2017-11-20] MEDS: ZIPRASIDONE 40 MG CAPSULE. PO SCH (08:19)
[2017-11-20] MEDS: NICOTINE 21MG PATCH. TD SCH (08:20)
--- NOTE | 2017-11-20 12:33 | EKG ---
[facility] [address] [place] [address] Test Date: 2017-11-19 Test Time: 11:26:30 Pat Name: BALJINDER MCGEE Department: Room: [address] [place] [address] Gender: F Wall[employer] H[employer] Helper: : 1965 Requested By: PERRY ALFARO Order Number: [id number] Reading MD: Measurements Intervals [place] Rate: P: MN: QRS: QRSD: T: QT: QTc: Interpretive Statements
[2017-11-20 15:50] VITALS: BP 101/52
[2017-11-20] MEDS: ZIPRASIDONE 60 MG CAPSULE. PO SCH (19:42)
--- NOTE | 2017-11-20 21:06 | PDOC ---
Exam Note: Mario Note: Please also refer to the separate dictated note~for this date of service dictated separately.~Patient seen individually. Discussed the patient with Nursing staff reviewed the chart.~Reviewed interim history and current functioning. Reviewed vital signs,~Labs/ Radiology~and current medications noted below. Continue current treatment with the changes noted in the dictated addendum note Assessment: Vital Signs: Vital Signs Date Time Temp Pulse Resp B/P (MAP) Pulse Ox O2 Delivery O2 Flow Rate FiO2 11/20/17 15:50 97.7 95 16 101/52 (68) 99 Room Air I&O Intake and Output 11/20/17 07:00 Intake Total 1560 ml Balance 1560 ml Intake Oral 1560 ml Current Medications: Meds: Current Medications Acetaminophen (Tylenol) 650 mg PRN Q6HRS PRN PO PAIN / TEMP; Start 11/16/17 at 17:00 Multi-Ingredient Ointment (Analgesic [place]) 1 raymon PRN QID PRN TP MUSCLE PAIN; Start 11/16/17 at 17:00 Al Hydroxide/Mg Hydroxide (Mylanta Plus Xs) 15 ml PRN AFTMEALHC PRN PO DYSPEPSIA; Start 11/16/17 at 17:00 Magnesium Hydroxide (Milk Of Magnesia) 2,400 mg PRN QHS PRN PO CONSTIPATION; Start 11/16/17 at 17:00 Nicotine (Nicoderm Cq 21mg) 1 patch DAILY TD Last administered on 11/20/17 08 :20; Start 11/17/17 at 09:00 Ziprasidone (Geodon) 20 mg QHS PO Last administered on 11/16/17 19:54; Start 11/16/17 at 21:00; Stop 11/17/17 at 05:01; Status DC Ziprasidone (Geodon) 40 mg QHS PO Last administered on 11/18/17 19:49; Start 11/17/17 at 21:00; Stop 11/18/17 at 23:00; Status DC Olanzapine (ZyPREXA ZYDIS) 5 mg PRN Q2HR PRN PO psychosis; Start 11/16/17 at 17:45 Trazodone HCl (Desyrel) 50 mg PRN QHS PRN PO insomnia ; Start 11/16/17 at 17: 45; Stop 11/19/17 at 18:34; Status DC Pneumococcal Polyvalent Vaccine (Do NOT chart on this entry -- for MONITORING) 1 each 1X ONCE MC ; Start 11/17/17 at 09:00; Stop 11/17/17 at 09:00; Status DC Info (FLU VACCINE per PROTOCOL) 1 ea PRN 1X PRN MC PER PROTOCOL; Start at 09:00; Stop 11/17/17 at 09:00; Status DC Pneumococcal Polyvalent Vaccine (Pneumovax 23) 0.5 ml ONCE ONCE VAX IM Last administered on 11/17/17 08:47; Start 11/17/17 at 09:00; Stop 11/17/17 at 09 :01; Status DC Influenza Virus Vaccine Quadrival (Fluarix Quad [id number] Syringe) 0.5 ml ONCE ONCE VAX IM Last administered on 11/17/17 08:48; Start 11/17/17 at 09:00; Stop 11/17/17 at 09:01; Status DC Iohexol (Omnipaque 300 Mg/ml) 75 ml 1X ONCE IV Last administered on 07:22; Start 11/17/17 at 16:30; Stop 11/17/17 at 16:31; Status DC Ziprasidone (Geodon) 40 mg BID PO Last administered on 11/20/17 08:19; Start 11/19/17 at 09:00; Stop 11/20/17 at 17:39; Status DC Trazodone HCl (Desyrel) 100 mg PRN QHS PRN PO INSOMNIA, MAY REPEAT X1 Last administered on 11/19/17 19:03; Start 11/19/17 at 18:45 Ziprasidone (Geodon) 60 mg BID PO Last administered on 11/20/17 19:42; Start 11/20/17 at 21:00 I have reviewed the current psychotropics carefully including drug interactions. Risk benefit ratio favors no change other than as noted in my dictated progress note. Diagnosis: Problems: (1) Delusion (2) Paranoia (3) Anxiety disorder (4) Schizoaffective disorder, chronic condition with acute exacerbation (5) Bipolar 1 disorder, mixed, moderate (6) Schizophrenia PERRY ALFARO MD Nov 20, 2017 21:06
[2017-11-21 06:17] VITALS: BP 83/50
[2017-11-21] MEDS: ZIPRASIDONE 60 MG CAPSULE. PO SCH ×2 (08:05→20:10)
[2017-11-21] MEDS: NICOTINE 21MG PATCH. TD SCH (08:05)
[2017-11-21 08:08] VITALS: BP 115/61
[2017-11-21 15:54] VITALS: BP 97/63
--- NOTE | 2017-11-21 18:25 | PN ---
DATE: 11/19/2017 PSYCHIATRIC PROGRESS NOTE This is a late entry for 11/19/2017, covers elements not covered in my initial note of 11/19/2017. SUBJECTIVE: I met with the patient the evening of 11/19/2017. The patient slept 4-1/2 hours previous evening, gets a little paranoid, especially when she saw one of the nursing supervisors, who she recognized as a relative from the past, but this brought back certain memories, unclear what they are, which heightened the paranoia. She is somewhat ritualistic. REVIEW OF SYSTEMS: No CV, , pulmonary, eye system symptoms on review. MENTAL STATUS EXAM: I met with her at length. Does have a thought disorder and she is still somewhat loose in her associations. Speech is coherent, abstraction fair, computation impaired, language function intact, attention span short. Mood and affect less labile. LABORATORY DATA: Reviewed. IMPRESSION: Schizoaffective disorder, bipolar type, mixed with psychotic features, in partial remission. Rest unchanged. PLAN: Add trazodone 100 mg at bedtime p.r.n., may repeat x 1 for insomnia. Rest psychotropics unchanged from initial note. We will check EKG. If this is unremarkable, we will increase Geodon. PERRY ALFARO MD DR: DEREK/jenna JOB#: [id number] / [id number]
--- NOTE | 2017-11-21 18:31 | PN ---
DATE: 11/20/2017 This is a late entry, covers the elements not covered in my initial note 11/20/2017. SUBJECTIVE: I met with the patient in the evening of 11/20/2017. 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 No CV, , pulmonary, eye system symptoms on review. MENTAL STATUS EXAM: Oriented to herself and situation. Speech coherent, abstraction fair, computation impaired, language function intact to assist with thought disorder. I had described to me at length her days, routine when she is living at home with her sister. She seemed to drift off one-fourth of the way after breakfast in her description of the day, but was able to pull herself better than before. Thought process is concerned. EKG: QTC is 430 milliseconds on 11/19/2017. IMPRESSION: Schizoaffective disorder, bipolar type, mixed with psychotic features versus schizophrenia, chronic, undifferentiated with acute exacerbation. PLAN: Increase Geodon from 40 mg b.i.d. to 60 mg b.i.d. Rest unchanged for now. MAN Thad ALFARO MD DR: DEREK/jenna JOB#: [id number] / [id number]
--- NOTE | 2017-11-21 20:09 | PDOC ---
Exam Note: Mario Note: Please also refer to the separate dictated note~for this date of service dictated separately.~Patient seen individually. Discussed the patient with Nursing staff reviewed the chart.~Reviewed interim history and current functioning. Reviewed vital signs,~Labs/ Radiology~and current medications noted below. Continue current treatment with the changes noted in the dictated addendum note Assessment: Vital Signs: Vital Signs Date Time Temp Pulse Resp B/P (MAP) Pulse Ox O2 Delivery O2 Flow Rate FiO2 11/21/17 15:54 98.6 100 16 97/63 (74) 96 11/20/17 15:50 Room Air I&O Intake and Output 11/21/17 07:00 Intake Total 1200 ml Balance 1200 ml Intake Oral 1200 ml # Bowel Movements 1 Current Medications: Meds: Current Medications Acetaminophen (Tylenol) 650 mg PRN Q6HRS PRN PO PAIN / TEMP; Start 11/16/17 at 17:00 Multi-Ingredient Ointment (Analgesic [place]) 1 raymon PRN QID PRN TP MUSCLE PAIN; Start 11/16/17 at 17:00 Al Hydroxide/Mg Hydroxide (Mylanta Plus Xs) 15 ml PRN AFTMEALHC PRN PO DYSPEPSIA; Start 11/16/17 at 17:00 Magnesium Hydroxide (Milk Of Magnesia) 2,400 mg PRN QHS PRN PO CONSTIPATION; Start 11/16/17 at 17:00 Nicotine (Nicoderm Cq 21mg) 1 patch DAILY TD Last administered on 11/21/17 08 :05; Start 11/17/17 at 09:00 Ziprasidone (Geodon) 20 mg QHS PO Last administered on 11/16/17 19:54; Start 11/16/17 at 21:00; Stop 11/17/17 at 05:01; Status DC Ziprasidone (Geodon) 40 mg QHS PO Last administered on 11/18/17 19:49; Start 11/17/17 at 21:00; Stop 11/18/17 at 23:00; Status DC Olanzapine (ZyPREXA ZYDIS) 5 mg PRN Q2HR PRN PO psychosis; Start 11/16/17 at 17:45 Trazodone HCl (Desyrel) 50 mg PRN QHS PRN PO insomnia ; Start 11/16/17 at 17: 45; Stop 11/19/17 at 18:34; Status DC Pneumococcal Polyvalent Vaccine (Do NOT chart on this entry -- for MONITORING) 1 each 1X ONCE MC ; Start 11/17/17 at 09:00; Stop 11/17/17 at 09:00; Status DC Info (FLU VACCINE per PROTOCOL) 1 ea PRN 1X PRN MC PER PROTOCOL; Start at 09:00; Stop 11/17/17 at 09:00; Status DC Pneumococcal Polyvalent Vaccine (Pneumovax 23) 0.5 ml ONCE ONCE VAX IM Last administered on 11/17/17 08:47; Start 11/17/17 at 09:00; Stop 11/17/17 at 09 :01; Status DC Influenza Virus Vaccine Quadrival (Fluarix Quad 7020-1914 Syringe) 0.5 ml ONCE ONCE VAX IM Last administered on 11/17/17 08:48; Start 11/17/17 at 09:00; Stop 11/17/17 at 09:01; Status DC Iohexol (Omnipaque 300 Mg/ml) 75 ml 1X ONCE IV Last administered on 07:22; Start 11/17/17 at 16:30; Stop 11/17/17 at 16:31; Status DC Ziprasidone (Geodon) 40 mg BID PO Last administered on 11/20/17 08:19; Start 11/19/17 at 09:00; Stop 11/20/17 at 17:39; Status DC Trazodone HCl (Desyrel) 100 mg PRN QHS PRN PO INSOMNIA, MAY REPEAT X1 Last administered on 11/19/17 19:03; Start 11/19/17 at 18:45 Ziprasidone (Geodon) 60 mg BID PO Last administered on 11/21/17 08:05; Start 11/20/17 at 21:00 I have reviewed the current psychotropics carefully including drug interactions. Risk benefit ratio favors no change other than as noted in my dictated progress note. Diagnosis: Problems: (1) Delusion (2) Paranoia (3) Anxiety disorder (4) Schizoaffective disorder, chronic condition with acute exacerbation (5) Bipolar 1 disorder, mixed, moderate (6) Schizophrenia PERRY ALFARO MD Nov 21, 2017 20:09
[2017-11-22 05:46] VITALS: BP 106/54
[2017-11-22 07:02] LABS: BASO # 0.1 x10^3/uL (0.0-0.2); BASO % 1 % (0-3); EOS # 0.1 x10^3/uL (0.0-0.7); EOS % 2 % (0-3); HEMATOCRIT 37.5 % (36.0-47.0); HEMOGLOBIN 12.9 g/dL (12.0-15.5); LYMPH # 1.7 x10^3/uL (1.0-4.8); LYMPH % 25 % (24-48); MEAN CORPUSCULAR HEMOGLOBIN 33 pg (25-35); MEAN CORPUSCULAR HGB CONC 34 g/dL (31-37); MEAN CORPUSCULAR VOLUME 95 fL (79-100); MONO # 0.7 x10^3/uL (0.0-1.1); MONO % 10 % (0-9); NEUT # 4.4 x10^3uL (1.8-7.7); NEUT % 63 % (31-73); PLATELET COUNT 217 x10^3/uL (140-400); RED BLOOD COUNT 3.96 x10^6/uL (3.50-5.40); RED CELL DISTRIBUTION WIDTH 13.1 % (11.5-14.5)
[2017-11-22 07:13] LABS: ALBUMIN 3.3 g/dL (3.4-5.0); ALBUMIN/GLOBULIN RATIO 1.1 (1.0-1.7); CALCIUM 8.9 mg/dL (8.5-10.1); CREATININE 0.8 mg/dL (0.6-1.0); GFR 74.7; POTASSIUM 4.5 mmol/L (3.5-5.1); TOTAL BILIRUBIN 0.2 mg/dL (0.2-1.0); TOTAL PROTEIN 6.3 g/dL (6.4-8.2)
[2017-11-22] MEDS: NICOTINE 21MG PATCH. TD SCH (08:09)
[2017-11-22] MEDS: ZIPRASIDONE 60 MG CAPSULE. PO SCH ×2 (08:09→19:14)
--- NOTE | 2017-11-22 12:21 | PN ---
DATE: 11/21/2017 PSYCHIATRIC PROGRESS NOTE This is a late entry 11/21/2017, covers elements not covered in my initial note 11/21/2017. SUBJECTIVE: I met with the patient the evening of 11/21/2017. The patient remains somewhat confused, disorganized with short-term memory deficits, but covers it up verbally by talking as if she is totally cognitively intact. REVIEW OF SYSTEMS: No CV, , pulmonary, eye, ENT system symptoms on review. MENTAL STATUS EXAM: Oriented to herself and situation. Speech is coherent, has some latency. Abstraction fair, computation impaired, language function intact. Mood and affect somewhat anxious at times. LABORATORY DATA: Reviewed. IMPRESSION: Schizoaffective disorder, bipolar type, mixed with psychotic features, in partial remission; cognitive disorder, unspecified. PLAN: From a psychiatric standpoint, the patient was on Geodon 60 mg b.i.d. At last check EKG was unremarkable. We may need to increase the Geodon further, which I would like give it another day or two. Continue rest unchanged per initial note. MAN Thad ALFARO MD DR: DEREK/jenna JOB#: [id number] / [id number]
[2017-11-22 16:05] VITALS: BP 98/49
--- NOTE | 2017-11-22 20:07 | PDOC ---
Exam Note: Mario Note: Please also refer to the separate dictated note~for this date of service dictated separately.~Patient seen individually. Discussed the patient with Nursing staff reviewed the chart.~Reviewed interim history and current functioning. Reviewed vital signs,~Labs/ Radiology~and current medications noted below. Continue current treatment with the changes noted in the dictated addendum note Assessment: Vital Signs: Vital Signs Date Time Temp Pulse Resp B/P (MAP) Pulse Ox O2 Delivery O2 Flow Rate FiO2 11/22/17 16:05 97.0 86 18 98/49 (65) 99 Room Air I&O Intake and Output 11/22/17 06:59 Intake Total 1440 ml Balance 1440 ml Intake Oral 1440 ml Labs: Laboratory Tests Test 11/22/17 06:43 White Blood Count 7.0 x10^3/uL (4.0-11.0) Red Blood Count 3.96 x10^6/uL (3.50-5.40) Hemoglobin 12.9 g/dL (12.0-15.5) Hematocrit 37.5 % (36.0-47.0) Mean Corpuscular Volume 95 fL (79-100) Mean Corpuscular Hemoglobin 33 pg (25-35) Mean Corpuscular Hemoglobin Concent 34 g/dL (31-37) Red Cell Distribution Width 13.1 % (11.5-14.5) Platelet Count 217 x10^3/uL (140-400) Neutrophils (%) (Auto) 63 % (31-73) Lymphocytes (%) (Auto) 25 % (24-48) Monocytes (%) (Auto) 10 % (0-9) H Eosinophils (%) (Auto) 2 % (0-3) Basophils (%) (Auto) 1 % (0-3) Neutrophils # (Auto) 4.4 x10^3uL (1.8-7.7) Lymphocytes # (Auto) 1.7 x10^3/uL (1.0-4.8) Monocytes # (Auto) 0.7 x10^3/uL (0.0-1.1) Eosinophils # (Auto) 0.1 x10^3/uL (0.0-0.7) Basophils # (Auto) 0.1 x10^3/uL (0.0-0.2) Sodium Level 142 mmol/L (136-145) Potassium Level 4.5 mmol/L (3.5-5.1) Chloride Level 106 mmol/L (98-107) Carbon Dioxide Level 33 mmol/L (21-32) H Anion Gap 3 (6-14) L Blood Urea Nitrogen 9 mg/dL (7-20) Creatinine 0.8 mg/dL (0.6-1.0) Estimated GFR (Cockcroft-Gault) 74.7 BUN/Creatinine Ratio 11 (6-20) Glucose Level 84 mg/dL (70-99) Calcium Level 8.9 mg/dL (8.5-10.1) Total Bilirubin 0.2 mg/dL (0.2-1.0) Aspartate Amino Transferase (AST) 18 U/L (15-37) Alanine Aminotransferase (ALT) 18 U/L (14-59) Alkaline Phosphatase 78 U/L (46-116) Total Protein 6.3 g/dL (6.4-8.2) L Albumin 3.3 g/dL (3.4-5.0) L Albumin/Globulin Ratio 1.1 (1.0-1.7) Current Medications: Meds: Current Medications Acetaminophen (Tylenol) 650 mg PRN Q6HRS PRN PO PAIN / TEMP; Start 11/16/17 at 17:00 Multi-Ingredient Ointment (Analgesic [place]) 1 raymon PRN QID PRN TP MUSCLE PAIN; Start 11/16/17 at 17:00 Al Hydroxide/Mg Hydroxide (Mylanta Plus Xs) 15 ml PRN AFTMEALHC PRN PO DYSPEPSIA; Start 11/16/17 at 17:00 Magnesium Hydroxide (Milk Of Magnesia) 2,400 mg PRN QHS PRN PO CONSTIPATION; Start 11/16/17 at 17:00 Nicotine (Nicoderm Cq 21mg) 1 patch DAILY TD Last administered on 11/22/17 08 :09; Start 11/17/17 at 09:00 Ziprasidone (Geodon) 20 mg QHS PO Last administered on 11/16/17 19:54; Start 11/16/17 at 21:00; Stop 11/17/17 at 05:01; Status DC Ziprasidone (Geodon) 40 mg QHS PO Last administered on 11/18/17 19:49; Start 11/17/17 at 21:00; Stop 11/18/17 at 23:00; Status DC Olanzapine (ZyPREXA ZYDIS) 5 mg PRN Q2HR PRN PO psychosis; Start 11/16/17 at 17:45 Trazodone HCl (Desyrel) 50 mg PRN QHS PRN PO insomnia ; Start 11/16/17 at 17: 45; Stop 11/19/17 at 18:34; Status DC Pneumococcal Polyvalent Vaccine (Do NOT chart on this entry -- for MONITORING) 1 each 1X ONCE MC ; Start 11/17/17 at 09:00; Stop 11/17/17 at 09:00; Status DC Info (FLU VACCINE per PROTOCOL) 1 ea PRN 1X PRN MC PER PROTOCOL; Start at 09:00; Stop 11/17/17 at 09:00; Status DC Pneumococcal Polyvalent Vaccine (Pneumovax 23) 0.5 ml ONCE ONCE VAX IM Last administered on 11/17/17 08:47; Start 11/17/17 at 09:00; Stop 11/17/17 at 09 :01; Status DC Influenza Virus Vaccine Quadrival (Fluarix Quad 0519-8727 Syringe) 0.5 ml ONCE ONCE VAX IM Last administered on 11/17/17 08:48; Start 11/17/17 at 09:00; Stop 11/17/17 at 09:01; Status DC Iohexol (Omnipaque 300 Mg/ml) 75 ml 1X ONCE IV Last administered on 07:22; Start 11/17/17 at 16:30; Stop 11/17/17 at 16:31; Status DC Ziprasidone (Geodon) 40 mg BID PO Last administered on 11/20/17 08:19; Start 11/19/17 at 09:00; Stop 11/20/17 at 17:39; Status DC Trazodone HCl (Desyrel) 100 mg PRN QHS PRN PO INSOMNIA, MAY REPEAT X1 Last administered on 11/19/17 19:03; Start 11/19/17 at 18:45 Ziprasidone (Geodon) 60 mg BID PO Last administered on 11/22/17 19:14; Start 11/20/17 at 21:00 I have reviewed the current psychotropics carefully including drug interactions. Risk benefit ratio favors no change other than as noted in my dictated progress note. Diagnosis: Problems: (1) Bronchial pneumonia (2) Delusion (3) Paranoia (4) Anxiety disorder (5) Schizoaffective disorder, chronic condition with acute exacerbation (6) Bipolar 1 disorder, mixed, moderate (7) Schizophrenia PERRY ALFARO MD Nov 22, 2017 20:07
[2017-11-23 05:14] VITALS: BP 124/60
[2017-11-23] MEDS: ZIPRASIDONE 60 MG CAPSULE. PO SCH ×2 (07:29→19:23)
[2017-11-23] MEDS: NICOTINE 21MG PATCH. TD SCH (07:29)
[2017-11-23 15:50] VITALS: BP 124/75
--- NOTE | 2017-11-23 19:50 | PDOC ---
Exam Note: Mario Note: Please also refer to the separate dictated note~for this date of service dictated separately.~Patient seen individually. Discussed the patient with Nursing staff reviewed the chart.~Reviewed interim history and current functioning. Reviewed vital signs,~Labs/ Radiology~and current medications noted below. Continue current treatment with the changes noted in the dictated addendum note Assessment: Vital Signs: Vital Signs Date Time Temp Pulse Resp B/P (MAP) Pulse Ox O2 Delivery O2 Flow Rate FiO2 11/23/17 15:50 98.1 99 20 124/75 (91) 99 11/22/17 16:05 Room Air I&O Intake and Output 11/23/17 07:00 Intake Total 1320 ml Balance 1320 ml Intake Oral 1320 ml # Voids 2 Current Medications: Meds: Current Medications Acetaminophen (Tylenol) 650 mg PRN Q6HRS PRN PO PAIN / TEMP; Start 11/16/17 at 17:00 Multi-Ingredient Ointment (Analgesic [place]) 1 raymon PRN QID PRN TP MUSCLE PAIN; Start 11/16/17 at 17:00 Al Hydroxide/Mg Hydroxide (Mylanta Plus Xs) 15 ml PRN AFTMEALHC PRN PO DYSPEPSIA; Start 11/16/17 at 17:00 Magnesium Hydroxide (Milk Of Magnesia) 2,400 mg PRN QHS PRN PO CONSTIPATION; Start 11/16/17 at 17:00 Nicotine (Nicoderm Cq 21mg) 1 patch DAILY TD Last administered on 11/23/17 07 :29; Start 11/17/17 at 09:00 Ziprasidone (Geodon) 20 mg QHS PO Last administered on 11/16/17 19:54; Start 11/16/17 at 21:00; Stop 11/17/17 at 05:01; Status DC Ziprasidone (Geodon) 40 mg QHS PO Last administered on 11/18/17 19:49; Start 11/17/17 at 21:00; Stop 11/18/17 at 23:00; Status DC Olanzapine (ZyPREXA ZYDIS) 5 mg PRN Q2HR PRN PO psychosis; Start 11/16/17 at 17:45 Trazodone HCl (Desyrel) 50 mg PRN QHS PRN PO insomnia ; Start 11/16/17 at 17: 45; Stop 11/19/17 at 18:34; Status DC Pneumococcal Polyvalent Vaccine (Do NOT chart on this entry -- for MONITORING) 1 each 1X ONCE MC ; Start 11/17/17 at 09:00; Stop 11/17/17 at 09:00; Status DC Info (FLU VACCINE per PROTOCOL) 1 ea PRN 1X PRN MC PER PROTOCOL; Start at 09:00; Stop 11/17/17 at 09:00; Status DC Pneumococcal Polyvalent Vaccine (Pneumovax 23) 0.5 ml ONCE ONCE VAX IM Last administered on 11/17/17 08:47; Start 11/17/17 at 09:00; Stop 11/17/17 at 09 :01; Status DC Influenza Virus Vaccine Quadrival (Fluarix Quad 5159-0540 Syringe) 0.5 ml ONCE ONCE VAX IM Last administered on 11/17/17 08:48; Start 11/17/17 at 09:00; Stop 11/17/17 at 09:01; Status DC Iohexol (Omnipaque 300 Mg/ml) 75 ml 1X ONCE IV Last administered on 07:22; Start 11/17/17 at 16:30; Stop 11/17/17 at 16:31; Status DC Ziprasidone (Geodon) 40 mg BID PO Last administered on 11/20/17 08:19; Start 11/19/17 at 09:00; Stop 11/20/17 at 17:39; Status DC Trazodone HCl (Desyrel) 100 mg PRN QHS PRN PO INSOMNIA, MAY REPEAT X1 Last administered on 11/19/17 19:03; Start 11/19/17 at 18:45 Ziprasidone (Geodon) 60 mg BID PO Last administered on 11/23/17 19:23; Start 11/20/17 at 21:00 Cyanocobalamin (Vitamin B-12) 1,000 mcg DAILY PO ; Start 11/24/17 at 09:00 I have reviewed the current psychotropics carefully including drug interactions. Risk benefit ratio favors no change other than as noted in my dictated progress note. Diagnosis: Problems: (1) Delusion (2) Paranoia (3) Anxiety disorder (4) Schizoaffective disorder, chronic condition with acute exacerbation (5) Bipolar 1 disorder, mixed, moderate (6) Schizophrenia (7) Bronchial pneumonia PERRY ALFARO MD Nov 23, 2017 19:50
[2017-11-24 05:16] VITALS: BP 99/56
[2017-11-24] MEDS: ZIPRASIDONE 60 MG CAPSULE. PO SCH (08:43)
[2017-11-24] MEDS: NICOTINE 21MG PATCH. TD SCH (08:43)
--- NOTE | 2017-11-24 08:43 | PN ---
DATE: 11/22/2017 This is a late entry for 11/22/2017 and covers elements not covered in my initial note of 11/22/2017. I met with the patient evening of 11/22/2017. She slept 6 hours previous evening, had a visit from her older brother, which went well, cooperative, compliant, goes off on tangents, cannot follow her thought processes at times, but overall more positive in her attitude. REVIEW OF SYSTEMS: No CV, , pulmonary, eye, ENT system symptoms on review. MENTAL STATUS EXAM: Oriented to herself and situation. Speech coherent. Associations at times a little tangential. Abstraction fair, computation impaired, little more insightful about her illness and treatment. No suicidal or homicidal ideation. IMPRESSION: Schizoaffective disorder, bipolar type, mixed with psychotic features, in partial remission. Rest unchanged. PLAN: Continue psychotropics as mentioned in my initial note. May need to increase Geodon further to 80 mg b.i.d. in due course. PERRY ALFARO MD DR: DEREK/jenna JOB#: [id number] / [id number]
[2017-11-24] MEDS: CYANOCOBALAMIN (VITAMIN B-12) 1,000 MCG TABLET. PO SCH (08:44)
[2017-11-24 16:01] VITALS: BP 101/68
--- NOTE | 2017-11-24 19:44 | PDOC ---
Exam Note: Mario Note: Please also refer to the separate dictated note~for this date of service dictated separately.~Patient seen individually. Discussed the patient with Nursing staff reviewed the chart.~Reviewed interim history and current functioning. Reviewed vital signs,~Labs/ Radiology~and current medications noted below. Continue current treatment with the changes noted in the dictated addendum note Assessment: Vital Signs: Vital Signs Date Time Temp Pulse Resp B/P (MAP) Pulse Ox O2 Delivery O2 Flow Rate FiO2 11/24/17 16:01 98.9 106 16 101/68 (79) 99 11/22/17 16:05 Room Air I&O Intake and Output 11/24/17 06:59 Intake Total 1920 ml Balance 1920 ml Intake Oral 1920 ml # Voids 2 Current Medications: Meds: Current Medications Acetaminophen (Tylenol) 650 mg PRN Q6HRS PRN PO PAIN / TEMP; Start 11/16/17 at 17:00 Multi-Ingredient Ointment (Analgesic [place]) 1 raymon PRN QID PRN TP MUSCLE PAIN; Start 11/16/17 at 17:00 Al Hydroxide/Mg Hydroxide (Mylanta Plus Xs) 15 ml PRN AFTMEALHC PRN PO DYSPEPSIA; Start 11/16/17 at 17:00 Magnesium Hydroxide (Milk Of Magnesia) 2,400 mg PRN QHS PRN PO CONSTIPATION; Start 11/16/17 at 17:00 Nicotine (Nicoderm Cq 21mg) 1 patch DAILY TD Last administered on 11/24/17 08 :43; Start 11/17/17 at 09:00 Ziprasidone (Geodon) 20 mg QHS PO Last administered on 11/16/17 19:54; Start 11/16/17 at 21:00; Stop 11/17/17 at 05:01; Status DC Ziprasidone (Geodon) 40 mg QHS PO Last administered on 11/18/17 19:49; Start 11/17/17 at 21:00; Stop 11/18/17 at 23:00; Status DC Olanzapine (ZyPREXA ZYDIS) 5 mg PRN Q2HR PRN PO psychosis; Start 11/16/17 at 17:45 Trazodone HCl (Desyrel) 50 mg PRN QHS PRN PO insomnia ; Start 11/16/17 at 17: 45; Stop 11/19/17 at 18:34; Status DC Pneumococcal Polyvalent Vaccine (Do NOT chart on this entry -- for MONITORING) 1 each 1X ONCE MC ; Start 11/17/17 at 09:00; Stop 11/17/17 at 09:00; Status DC Info (FLU VACCINE per PROTOCOL) 1 ea PRN 1X PRN MC PER PROTOCOL; Start at 09:00; Stop 11/17/17 at 09:00; Status DC Pneumococcal Polyvalent Vaccine (Pneumovax 23) 0.5 ml ONCE ONCE VAX IM Last administered on 11/17/17 08:47; Start 11/17/17 at 09:00; Stop 11/17/17 at 09 :01; Status DC Influenza Virus Vaccine Quadrival (Fluarix Quad 9073-9122 Syringe) 0.5 ml ONCE ONCE VAX IM Last administered on 11/17/17 08:48; Start 11/17/17 at 09:00; Stop 11/17/17 at 09:01; Status DC Iohexol (Omnipaque 300 Mg/ml) 75 ml 1X ONCE IV Last administered on 07:22; Start 11/17/17 at 16:30; Stop 11/17/17 at 16:31; Status DC Ziprasidone (Geodon) 40 mg BID PO Last administered on 11/20/17 08:19; Start 11/19/17 at 09:00; Stop 11/20/17 at 17:39; Status DC Trazodone HCl (Desyrel) 100 mg PRN QHS PRN PO INSOMNIA, MAY REPEAT X1 Last administered on 11/19/17 19:03; Start 11/19/17 at 18:45 Ziprasidone (Geodon) 60 mg BID PO Last administered on 11/24/17 08:43; Start 11/20/17 at 21:00; Stop 11/24/17 at 17:20; Status DC Cyanocobalamin (Vitamin B-12) 1,000 mcg DAILY PO Last administered on 08:44; Start 11/24/17 at 09:00 Ziprasidone (Geodon) 80 mg BID PO ; Start 11/24/17 at 21:00 I have reviewed the current psychotropics carefully including drug interactions. Risk benefit ratio favors no change other than as noted in my dictated progress note. Diagnosis: Problems: (1) Delusion (2) Paranoia (3) Anxiety disorder (4) Schizoaffective disorder, chronic condition with acute exacerbation (5) Bipolar 1 disorder, mixed, moderate (6) Schizophrenia (7) Bronchial pneumonia PERRY ALFARO MD Nov 24, 2017 19:44
[2017-11-24] MEDS: ZIPRASIDONE 80 MG CAPSULE. PO SCH (20:07)
[2017-11-25] MEDS ORDERED: ACET325T9 PO (03:20)
[2017-11-25] MEDS ORDERED: [UNRECOGNIZED DRUG - CODE] PO (03:22)
[2017-11-25] MEDS ORDERED: MAG355OR16 PO (03:24)
[2017-11-25] MEDS ORDERED: MAGN2400 PO (03:25)
[2017-11-25] MEDS ORDERED: METH29OI TP (03:26)
[2017-11-25] MEDS ORDERED: NICO1PAT21 TD (03:27)
[2017-11-25] MEDS ORDERED: OLAN5TAB3 PO (03:29)
[2017-11-25] MEDS ORDERED: ZIPR80CA2 PO (03:31)
[2017-11-25] MEDS ORDERED: TRAZ-90 PO (03:32)
[2017-11-25 05:58] VITALS: BP 93/64
--- NOTE | 2017-11-25 08:44 | PN ---
DATE: 11/23/2017 This is a late entry for 11/23/2017 and covers elements not covered in my initial note of 11/23/2017. I met with the patient in the evening of 11/23/2017, the patient slept 6-3/4 hours previous evening. She is still noted by nursing staff to be talking to herself at times. At one time the previous evening, she was found as if she was holding a telephone to her ear, but there was no telephone in her hand. REVIEW OF SYSTEMS: No CV, , pulmonary, eye, ENT system symptoms on review. MENTAL STATUS EXAM: Oriented to herself and situation. Speech coherent, abstraction fair, computation impaired, language function intact. Overall, psychotic symptoms are better. No suicidal or homicidal ideation. Attention span short. Language function intact. IMPRESSION: Schizoaffective disorder, bipolar type, mixed with psychotic features, in partial remission; psychotic disorder, unspecified versus schizophrenia, chronic, undifferentiated. Rest unchanged from initial note. PLAN: Continue current psychotropics. Starting 11/24/2017, we will increase the Geodon to 80 mg twice a day and check another EKG. MAN Thad ALFARO MD DR: DEREK/jenna JOB#: [id number] / [id number]
[2017-11-25] MEDS: NICOTINE 21MG PATCH. TD SCH (08:56)
[2017-11-25] MEDS: CYANOCOBALAMIN (VITAMIN B-12) 1,000 MCG TABLET. PO SCH (08:56)
[2017-11-25] MEDS: ZIPRASIDONE 80 MG CAPSULE. PO SCH (08:56)
--- NOTE | 2017-11-25 18:30 | PDOC ---
Exam Note: Mario Note: Please also refer to the separate dictated note~for this date of service dictated separately.~Patient seen individually. Discussed the patient with Nursing staff reviewed the chart.~Reviewed interim history and current functioning. Reviewed vital signs,~Labs/ Radiology~and current medications noted below. Continue current treatment with the changes noted in the dictated addendum note Assessment: Vital Signs: Vital Signs Date Time Temp Pulse Resp B/P (MAP) Pulse Ox O2 Delivery O2 Flow Rate FiO2 11/25/17 05:58 97.1 104 16 93/64 (74) 99 11/22/17 16:05 Room Air I&O Intake and Output 11/25/17 07:00 Intake Total 1800 ml Balance 1800 ml Intake Oral 1800 ml # Voids 2 # Bowel Movements 1 Current Medications: Meds: Current Medications Acetaminophen (Tylenol) 650 mg PRN Q6HRS PRN PO PAIN / TEMP; Start 11/16/17 at 17:00; Stop 11/25/17 at 13:16; Status DC Multi-Ingredient Ointment (Analgesic [place]) 1 [place] PRN QID PRN TP MUSCLE PAIN; Start 11/16/17 at 17:00; Stop 11/25/17 at 13:16; Status DC Al Hydroxide/Mg Hydroxide (Mylanta Plus Xs) 15 ml PRN AFTMEALHC PRN PO DYSPEPSIA; Start 11/16/17 at 17:00; Stop 11/25/17 at 13:16; Status DC Magnesium Hydroxide (Milk Of Magnesia) 2,400 mg PRN QHS PRN PO CONSTIPATION; Start 11/16/17 at 17:00; Stop 11/25/17 at 13:16; Status DC Nicotine (Nicoderm Cq 21mg) 1 patch DAILY TD Last administered on 11/25/17 08 :56; Start 11/17/17 at 09:00; Stop 11/25/17 at 13:16; Status DC Ziprasidone (Geodon) 20 mg QHS PO Last administered on 11/16/17 19:54; Start 11/16/17 at 21:00; Stop 11/17/17 at 05:01; Status DC Ziprasidone (Geodon) 40 mg QHS PO Last administered on 11/18/17 19:49; Start 11/17/17 at 21:00; Stop 11/18/17 at 23:00; Status DC Olanzapine (ZyPREXA ZYDIS) 5 mg PRN Q2HR PRN PO psychosis; Start 11/16/17 at 17:45; Stop 11/25/17 at 13:16; Status DC Trazodone HCl (Desyrel) 50 mg PRN QHS PRN PO insomnia ; Start 11/16/17 at 17: 45; Stop 11/19/17 at 18:34; Status DC Pneumococcal Polyvalent Vaccine (Do NOT chart on this entry -- for MONITORING) 1 each 1X ONCE MC ; Start 11/17/17 at 09:00; Stop 11/17/17 at 09:00; Status DC Info (FLU VACCINE per PROTOCOL) 1 ea PRN 1X PRN MC PER PROTOCOL; Start at 09:00; Stop 11/17/17 at 09:00; Status DC Pneumococcal Polyvalent Vaccine (Pneumovax 23) 0.5 ml ONCE ONCE VAX IM Last administered on 11/17/17 08:47; Start 11/17/17 at 09:00; Stop 11/17/17 at 09 :01; Status DC Influenza Virus Vaccine Quadrival (Fluarix Quad [id number] Syringe) 0.5 ml ONCE ONCE VAX IM Last administered on 11/17/17 08:48; Start 11/17/17 at 09:00; Stop 11/17/17 at 09:01; Status DC Iohexol (Omnipaque 300 Mg/ml) 75 ml 1X ONCE IV Last administered on 07:22; Start 11/17/17 at 16:30; Stop 11/17/17 at 16:31; Status DC Ziprasidone (Geodon) 40 mg BID PO Last administered on 11/20/17 08:19; Start 11/19/17 at 09:00; Stop 11/20/17 at 17:39; Status DC Trazodone HCl (Desyrel) 100 mg PRN QHS PRN PO INSOMNIA, MAY REPEAT X1 Last administered on 11/19/17 19:03; Start 11/19/17 at 18:45; Stop 11/25/17 at 13 :16; Status DC Ziprasidone (Geodon) 60 mg BID PO Last administered on 11/24/17 08:43; Start 11/20/17 at 21:00; Stop 11/24/17 at 17:20; Status DC Cyanocobalamin (Vitamin B-12) 1,000 mcg DAILY PO Last administered on 08:56; Start 11/24/17 at 09:00; Stop 11/25/17 at 13:16; Status DC Ziprasidone (Geodon) 80 mg BID PO Last administered on 11/25/17 08:56; Start 11/24/17 at 21:00; Stop 11/25/17 at 13:16; Status DC Active Scripts Active Reported Trazodone Hcl 100 Mg Tablet 100 Mg PO PRN QHS PRN Geodon (Ziprasidone Hcl) 80 Mg Capsule 80 Mg PO BID Zyprexa (Olanzapine) 5 Mg Tablet 5 Mg PO PRN Q2HR PRN NICODERM CQ 21mg (Nicotine) 1 Each Patch.td24 1 Patch TD DAILY Analgesic [place] (Methyl Salicylate/Menthol) 28 Gm Oint...g. 1 [place] TP QIDPRN PRN Milk Of Magnesia (Magnesium Hydroxide) 2,400 Mg/10 Ml Oral.susp 2,400 Mg PO PRN QHS PRN Antacid Plus Anti-Gas Susp (Mag Hydrox/Al Hydrox/Simeth) 355 Ml Oral.susp 15 Ml PO PRN AFTMEALHC PRN B-12 (Cyanocobalamin (Vitamin B-12)) 1,500 Mcg Tab.rapdis 1,000 Mcg PO DAILY Tylenol (Acetaminophen) 325 Mg Tablet 650 Mg PO PRN Q6HRS PRN I have reviewed the current psychotropics carefully including drug interactions. Risk benefit ratio favors no change other than as noted in my dictated progress note. Diagnosis: Problems: (1) Bipolar 1 disorder, mixed, moderate (2) Schizoaffective disorder, chronic condition with acute exacerbation (3) Anxiety disorder (4) Schizophrenia PERRY ALFARO MD Nov 25, 2017 18:30
--- NOTE | 2017-11-26 13:02 | EKG ---
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
--- NOTE | 2017-11-26 23:34 | DS ---
DATE OF DISCHARGE: 11/25/2017 DISCHARGE SUMMARY/PSYCHIATRIC PROGRESS NOTE This late entry 11/25/2017 covers elements, not covered in my initial note 11/25/2017. REASON FOR ADMISSION: Please refer to the admission history for details. HISTORY OF PRESENT ILLNESS: Briefly, the patient is a 52-year-old female admitted from Emergency Room at [facility] where she presented from home on account of increased psychotic symptoms, delusions about her family in burials and hatred, all which was fairly psychotic, bizarre and disorganized. She had not been taking her psychotropics for the schizoaffective disorder versus schizophrenia for sometime and progressively had got more psychotic. Continue to live with her sister, but refused to go to the [facility] for outpatient psychiatric treatment. SIGNIFICANT FINDINGS AND CLINICAL COURSE: Following admission, the patient was seen daily individually by myself from a psychiatric standpoint, medical followup per Dr. Valle/Dr. Reyes. She was quite disorganized, loose associations were evident, frequently tangential in her thinking. She was started on Geodon. EKGs were monitored for corrected QT interval and these remained stable and Geodon was gradually increased to 80 mg twice a day. She tolerated this well along with trazodone 100 mg at bedtime p.r.n., may repeat x1 for insomnia. Psychotic symptoms appeared to subside, thinking was much more on track prior to discharge and she was more compliant, agreeable to outpatient treatment of the [facility]. CONDITION AT DISCHARGE: Improved. No suicidal or homicidal ideation at discharge. FINAL DIAGNOSES: Schizoaffective disorder, bipolar type, mixed with psychotic features, in partial remission; schizophrenia, chronic, undifferentiated with acute exacerbation, in partial remission; anxiety disorder, unspecified. Rest unchanged from admission. DISCHARGE MEDICATIONS: Please refer to the MRAD. DISCHARGE INSTRUCTIONS: Outpatient psychiatric followup at the [facility], medical followup with her primary care physician. PERRY ALFARO MD DR: DEREK/jenna JOB#: [id number] / [id number]
--- NOTE | 2017-11-27 03:24 | PN ---
DATE: 11/24/2017 This is a late entry for 11/24/2017, covers elements not covered in my initial note of 11/24/2017. SUBJECTIVE: I met with the patient the evening of 11/24/2017. QTC is 452 milliseconds. She is tolerating the Geodon 80 mg twice a day. Appears less disorganized in her thinking. REVIEW OF SYSTEMS: No CV, , pulmonary, eye system symptoms on review. MENTAL STATUS EXAMINATION: Oriented to herself and situation. Speech coherent. Abstraction: Fair. No suicidal or homicidal ideation. IMPRESSION: Unchanged from initial note. PLAN: Continue current psychotropics with increase Geodon as mentioned in my initial note. MAN Thad ALFARO MD DR: DEREK/jenna JOB#: [id number] / [id number]
--- NOTE | 2017-11-27 18:08 | EKG ---
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
== END 2017-11-25 13:15 | disposition home or self-care (01) | DRG 885 ==
LOC: ER 09:36 → GEROPSY 16:30
PROVIDERS: ADMIT Psychiatry & Neurology Psychiatry; ATTEND Psychiatry & Neurology Psychiatry
DX: F25.0 Schizoaffective disorder, bipolar type (principal); J18.0 Bronchopneumonia, unspecified organism; F22 Delusional disorders; J44.0 Chronic obstructive pulmonary disease with (acute) lower respiratory infection; F17.200 Nicotine dependence, unspecified, uncomplicated; F41.9 Anxiety disorder, unspecified; G47.00 Insomnia, unspecified; Z91.19 Patient's noncompliance with other medical treatment and regimen
CPT/HCPCS: 36415; 70450; 71275; 80053; 80061; 80307; 81001; 82306; 82607; 83036; 83540; 83550; 83735; 84436; 84480; 85007; 85025; 86593; 87086; 90686; 90732; 93005; 99407; G0480; Q9967; 99285-25; G0479

== ENCOUNTER 2018-03-25 14:18 | Emergency (ER) | payer MEDICARE ==
[~2018-03-25 14:18] MED LIST: ACET325T9 PO; MAG355OR16 PO; MAGN2400 PO; METH29OI TP; NICO1PAT21 TD; OLAN5TAB3 PO; TRAZ-90 PO; ZIPR80CA2 PO; [UNRECOGNIZED DRUG - CODE] PO
== END 2018-03-25 14:25 | disposition left against medical advice (07) ==
LOC: ER 14:18
DX: Z59.0 Homelessness (principal); Z53.21 Procedure and treatment not carried out due to patient leaving prior to being seen by health care provider

== ENCOUNTER 2018-11-11 09:39 | Inpatient (IN) | payer MEDICARE ==
[~2018-11-11] VITALS: Ht 160 cm; Wt 50.9 kg
[~2018-11-11 09:39] MED LIST changes: +TRAZ-86 PO; -TRAZ-90 PO
--- NOTE | 2018-11-11 10:06 | PHYS DOC ---
Past History Past Medical History: Schizophrenia, Other Past Surgical History: Alcohol Use: None Drug Use: None Adult General Chief Complaint Chief Complaint: SUICDAL IDEATION HPI HPI 53-year-old female presents with suicidal ideation. She is accompanied by local police. The patient called the police department and was requesting that they do a lethal injection. They were concerned about this request and went to see the patient. They then brought her here for evaluation. The patient tells me that she has diagnosed delusional disorder. She takes Geodon. She states that she has been taking her medications. She denies any audible or visual hallucinations. She says that she has been thinking about for the last couple of months. She has not made a plan, and just thought of the lethal injection today. She decided to act upon that. Patient denies any other symptoms of illness at this time. She does believe she is been losing weight recently. Review of Systems Review of Systems Constitutional: Denies fever or chills [] Eyes: Denies change in visual acuity, redness, or eye pain [] HENT: Denies nasal congestion or sore throat [] Respiratory: Denies cough or shortness of breath [] Cardiovascular: No additional information not addressed in HPI [] GI: Denies abdominal pain, nausea, vomiting, bloody stools or diarrhea [] : Denies dysuria or hematuria [] Musculoskeletal: Denies back pain or joint pain [] Integument: Denies rash or skin lesions [] Neurologic: Denies headache, focal weakness or sensory changes [] Endocrine: Denies polyuria or polydipsia [] All other systems were reviewed and found to be within normal limits, except as documented in this note. Allergies Allergies Allergies Coded Allergies Type Severity Reaction Last Updated Verified No Known Drug Allergies 08/22/15 No Physical Exam Physical Exam Constitutional: Well developed, well nourished, no acute distress, non-toxic appearance. [] HENT: Normocephalic, atraumatic, bilateral external ears normal, oropharynx moist, no oral exudates, nose normal. [] Eyes: PERRLA, EOMI, conjunctiva normal, no discharge. [] Neck: Normal range of motion, no tenderness, supple, no stridor. [] Cardiovascular:Heart rate regular rhythm, no murmur [] Lungs & Thorax: Bilateral breath sounds clear to auscultation [] Abdomen: Bowel sounds normal, soft, no tenderness, no masses, no pulsatile masses. [] Skin: Warm, dry, no erythema, no rash. [] Back: No tenderness, no CVA tenderness. [] Extremities: No tenderness, no cyanosis, ROM intact, no edema. Clubbing of bilateral upper extremities[] Neurologic: Alert and oriented X 3, normal motor function, normal sensory function, no focal deficits noted. [] Psychologic: Affect flat, cooperative, judgement impaired, mood depressed. [] EKG EKG My interpretation: sinus tachycardia, rate 109, normal axis, no ST elevations or depressions.[] Radiology/Procedures Radiology/Procedures [] Course & Med Decision Making Course & Med Decision Making Pertinent Labs and Imaging studies reviewed. (See chart for details) The patient's labs are significant for potassium of 2.7. We will replace this with oral and IV potassium. I discussed the patient with the hospitalist, Dr. Reyes and he has accepted the patient for admission. Discussed this plan with the patient in agreement. They will perform the psychiatric consult on the medical floor. [] Dragon Disclaimer Dragon Disclaimer This electronic medical record was generated, in whole or in part, using a voice recognition dictation system. Departure Departure: Referrals: ZEUS MOMIN MD (PCP) SHARON JOHNSTON DO Nov 11, 2018 10:05
[2018-11-11 10:39] LABS: BASO % 1 % (0-3); EOS % 0 % (0-3); HEMATOCRIT 43.6 % (36.0-47.0); HEMOGLOBIN 14.8 g/dL (12.0-15.5); LYMPH # 0.9 x10^3/uL (1.0-4.8); LYMPH % 12 % (24-48); MEAN CORPUSCULAR HEMOGLOBIN 33 pg (25-35); MEAN CORPUSCULAR HGB CONC 34 g/dL (31-37); MEAN CORPUSCULAR VOLUME 97 fL (79-100); MONO # 0.5 x10^3/uL (0.0-1.1); MONO % 7 % (0-9); NEUT # 6.1 x10^3uL (1.8-7.7); NEUT % 80 % (31-73); PLATELET COUNT 268 x10^3/uL (140-400); RED BLOOD COUNT 4.51 x10^6/uL (3.50-5.40); RED CELL DISTRIBUTION WIDTH 14.5 % (11.5-14.5); WHITE BLOOD COUNT 7.6 x10^3/uL (4.0-11.0)
[2018-11-11 10:43] LABS: BACTERIA,URINE FEW /HPF (0-FEW); BILIRUBIN,URINE NEG (NEG); CLARITY,URINE HAZY; COLOR,URINE AMBER; GLUCOSE,URINE NEG (NEG); NITRITE,URINE NEG (NEG); RBC,URINE 0 /HPF (0-2); SQUAMOUS EPITHELIAL CELL,UR MOD /LPF; UROBILINOGEN,URINE 1 mg/dL (0.2 mg/dL)
[2018-11-11 10:44] LABS: HYALINE CASTS, URINE FEW /HPF
[2018-11-11 10:55] LABS: ALBUMIN 2.9 g/dL (3.4-5.0); ALBUMIN/GLOBULIN RATIO 0.9 (1.0-1.7); CALCIUM 8.3 mg/dL (8.5-10.1); CREATININE 0.9 mg/dL (0.6-1.0); MAGNESIUM 1.8 mg/dL (1.8-2.4); POTASSIUM 2.7 mmol/L (3.5-5.1); TOTAL BILIRUBIN 0.3 mg/dL (0.2-1.0)
[2018-11-11] MEDS ORDERED: POTASSIUM CL 40MEQ IN 0.9%NACL 1,000 ML IV ONE (11:00)
[2018-11-11] MEDS ORDERED: POTASSIUM CHLORIDE 20 MEQ TABLET.ER. PO ONE (12:00)
[2018-11-11] MEDS ORDERED: ONDANSETRON PF 4 MG/2 ML VIAL. IV PRN (12:00)
[2018-11-11 13:06] VITALS: BP 130/56
[2018-11-11] MEDS: NICOTINE 21MG PATCH. TD SCH (15:13)
--- NOTE | 2018-11-11 18:25 | HP ---
ADMIT DATE: 11/11/2018 HISTORY OF PRESENT ILLNESS: The patient is a 53-year-old female patient with a known past medical history significant for bipolar type versus schizophrenia, who apparently has called the police requesting that they admit her to the alf and do a little injection. The police were concerned about the request and went to see the patient. They did bring her here for evaluation. The patient stated that she has been taking her medication. She denied any audible or visual hallucination. She stated that she is thinking about and does not want to live around. She has had no plans made and just thought that the little injection will be the easiest thing to do, so decided to active on that. When I questioned her, she said that she has lost about 47 pounds in the last 6 months and everybody is telling her that she is going to . Apparently, she has been investigated by her primary care physician for this unexplained weight loss and all the labs were unrevealing. PAST MEDICAL HISTORY: Significant for COPD, unintentional weight loss as well as prominent finger clubbing. FAMILY HISTORY: Noncontributory. SOCIAL HISTORY: She has 3 sisters and 3 brothers. She lives, however, on her own. She has a 23-year-old daughter. She continued to smoke a pack a day, does not drink alcohol or use recreational drugs. REVIEW OF SYSTEMS: As per history of present illness. PHYSICAL EXAMINATION GENERAL: When I saw her, she was resting slightly propped up in bed, in no apparent respiratory distress. She was somewhat cachectic, but no jaundice, cyanosis, or thyromegaly. No jugular venous distension. No limb edema. VITAL SIGNS: Her heart rate was 77, blood pressure was 130/56, temperature was 97.4, respiratory rate was 20, and oxygen saturation was 97%. HEAD, EYES, EARS, NOSE AND THROAT: Showed normocephalic, atraumatic. NECK: Supple. HEART: Showed normal first and second heart sounds with no gallop, rub or murmur. CHEST: Clear to auscultation. No crepitation or rhonchi. ABDOMEN: Distended, soft, nontender. No guarding or rigidity. No organomegaly. All hernial orifice intact. Bowel sounds normal. NEUROLOGIC: She was awake, alert, responding appropriately. All cranial nerves intact. EXTREMITIES: She moves extremities without difficulty. She ambulates without assistance or assistive devices. LABORATORY DATA: On arrival showed a serum sodium 136, potassium 2.7, chloride 101, bicarbonate 26, anion gap of 9, BUN 5, creatinine 0.9, estimated GFR was 65 mL per minute. Calcium was 8.3, magnesium was 1.8. Serum iron 53, TIBC was 228. Iron saturation was 23. Total bilirubin, AST, ALT, alkaline phosphatase were normal. Total protein was 6, albumin was 2.9. Her vitamin B12 was 492. Her white cell count was 7600, hemoglobin 14.8, hematocrit 43.6, MCV 97 and platelet count of 168,000 with normal manual differential. Urinalysis was unremarkable, essentially negative. ASSESSMENT AND PLAN: In summary, this is a 53-year-old female patient who was admitted with suicidal ideation as she requested police to admit her to alf and get her a little injection. She has had also unexplained weight loss of about 47 pounds in the last 6 months according to her. She has also hypokalemia, chronic obstructive pulmonary disease and probably prominent finger clubbing. We will obviously admit her to the ICU for close observation. We will consult I will contact Inpatient Psych Unit for inpatient psychiatric stabilization. CHEPE MIRELES MD DR: KINSEY/jenna JOB#: [id number] / [id number]
[2018-11-11 19:40] VITALS: BP 131/54
[2018-11-11 22:38] VITALS: BP 148/72
--- NOTE | 2018-11-11 23:03 | EKG ---
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
[2018-11-12 06:13] VITALS: BP 116/58
[2018-11-12 07:17] LABS: CALCIUM 8.3 mg/dL (8.5-10.1); CREATININE 0.8 mg/dL (0.6-1.0); GFR 74.5; POTASSIUM 4.1 mmol/L (3.5-5.1)
[2018-11-12] MEDS: NICOTINE 21MG PATCH. TD SCH (09:00)
[2018-11-12] MEDS ORDERED: NICOTINE 21MG PATCH. TD SCH (09:45)
[2018-11-12] MEDS ORDERED: ZIPRASIDONE 80 MG CAPSULE. PO SCH (09:45)
[2018-11-12 10:39] VITALS: BP 101/49
[2018-11-12] MEDS ORDERED: Influenza vaccine per PROTOCOL. MC PRN (11:30)
--- NOTE | 2018-11-12 11:33 | PN ---
DATE: 11/12/2018 SUBJECTIVE: The patient is a 53-year-old female patient, who was admitted yesterday through the Emergency Room after she called the police requesting that they admit her to intermediate to give her a liter of injection. The police were very concerned about the request and went to see the patient. She was brought to the Emergency Room for evaluation. The patient stated that she has been taking her medication. She denied any audible or visual hallucination. She stated that she is thinking about and does not want to be it live around; however, she has had no plans and just thought that the liter injection will be easier. She was evaluated in the Emergency Room and was admitted for close observation. When I saw her today, she looked well and was clearly in no apparent respiratory distress. On questioning her, she denied any complaint. OBJECTIVE: GENERAL: When I examined her, she looked well and really showed no pallor, jaundice, cyanosis, or thyromegaly. No jugular venous distension. No limb edema. VITAL SIGNS: Her heart rate was 85, blood pressure was 116/58, temperature was 98.4, respiratory rate 20, and oxygen saturation was 94% on room air. HEAD, EYES, EARS, NOSE AND THROAT: Normocephalic, atraumatic. NECK: Supple. HEART: Showed normal first and second sounds. No gallop, rub or murmur. CHEST: Clear to auscultation. No crepitation or rhonchi. ABDOMEN: Distended, soft, nontender. No guarding or rigidity. No organomegaly. All hernial orifice intact. Bowel sounds normal. NEUROLOGIC: She was awake, alert, responding appropriately. All cranial nerves intact. She moves extremities without difficulty. Examination of extremities showed marked clubbing, but no cyanosis or edema. Her intake over the last 24 hour was 1400, no output was recorded. LABORATORY DATA: Her lab work this morning showed a white cell count 7600, hemoglobin 14.8, hematocrit 44, MCV 97 and platelet count 268,000. Her chemistry showed a serum sodium 143, potassium 4.1, chloride 105, bicarbonate 27, anion gap of 11, BUN 8, creatinine 0.8, estimated GFR was 74 mL per minute. Her glucose was 82, calcium was 8.3. Her vitamin B12 was 492 pg/mL. ASSESSMENT: In summary, this is a 53-year-old female patient, who was admitted through the Emergency Room after she called the police to admit her to intermediate and give her a liter of injection. She has remained stable medically. Other medical problems include COPD, unintentional weight loss and prominent finger clubbing. PLAN: To continue with her [facility], await the accepting facility either in [place] to see whether she qualifies to be transferred there. CHEPE MIRELES MD DR: KINSEY/jenna JOB#: [id number] / [id number]
--- NOTE | 2018-11-12 12:27 | TS ---
DATE OF TRANSFER: 11/12/2018 HISTORY OF PRESENT ILLNESS: The patient is a 53-year-old female patient, who was brought to the Emergency Room by the police. She apparently called the police requesting that they admit her to [facility] to give her a lethal injection. The police were very concerned about the request and went to see the patient. She was brought to the Emergency Room for evaluation. She denied any auditory or visual hallucination. She said that she was thinking about that and does not want to be alive and that is why she had this idea, but she has no plans and she thought that it is easier to get a lethal injection at [facility]. She was evaluated in the Emergency Room, was admitted for close observation. Her lab work showed that she has hypokalemia with the serum potassium of only 2.7. It was replete and she was evaluated by the team at [facility] and she apparently qualifies and will be transferred there today for inpatient psychiatric stabilization. PHYSICAL EXAMINATION: GENERAL: When I saw her this morning, she looked well and was clearly in no apparent respiratory distress, pale, cachectic, but no jaundice, cyanosis, or thyromegaly. No jugular venous distension. No limb edema. VITAL SIGNS: Her heart rate was 88, blood pressure was 101/49, temperature was 98.5, respiratory rate 22, and oxygen saturation was 94%. The rest of clinical examination is stable. She does have prominent clubbing just together with weight loss, severe hypokalemia and the fact she is a smoker ____ probably some underlying malignancy. LABORATORY DATA: Her lab work this morning showed that her serum sodium is up to 143, potassium 4.1, chloride 105, bicarbonate 27, anion gap of 11, BUN 8, creatinine 0.8, estimated GFR was 74 mL per minute. Her glucose was 82, calcium was 8.3. Her white cell count was 7600, hemoglobin 14.8, hematocrit 43, MCV 97, and platelet count 268. DISCHARGE MEDICATIONS: She was transferred to [facility] to continue on her Geodon 80 mg twice a day and Nicoderm patches 21 mg transdermal daily. FINAL DISCHARGE DIAGNOSES: Suicidal ideation, chronic obstructive pulmonary disease, hypokalemia, abnormal weight loss, and prominent finger clubbing. CHEPE MIRELES MD DR: KINSEY/jenna JOB#: [id number] / [id number]
== END 2018-11-12 13:05 | DRG 641 ==
LOC: ER 09:39 → ICU 11:47
PROVIDERS: ADMIT Internal Medicine; ATTEND Internal Medicine
DX: E87.6 Hypokalemia (principal); R45.851 Suicidal ideations; J44.9 Chronic obstructive pulmonary disease, unspecified; F17.210 Nicotine dependence, cigarettes, uncomplicated; F20.9 Schizophrenia, unspecified
CPT/HCPCS: 36415; 80048; 80053; 81001; 82607; 83540; 83550; 83735; 84132; 85025; 90471; 90756; 93005; 96365; 99285-25; Q2035

== ENCOUNTER 2019-05-05 07:38 | Emergency (ER) | payer MEDICARE ==
[~2019-05-05] VITALS: Ht 160 cm; Wt 49.2 kg
[2019-05-05] MEDS ORDERED: IV NORMAL SALINE 1,000ML 1,000 ML IV SCH (07:58)
[2019-05-05] MEDS ORDERED: ONDANSETRON PF 4 MG/2 ML VIAL. IV ONE (08:00)
[2019-05-05] MEDS ORDERED: HYOSCYAMINE 0.125 MG TAB.RAPDIS PO ONE (08:00)
--- NOTE | 2019-05-05 08:03 | PHYS DOC ---
Past History Past Medical History: COPD, Depression, Schizophrenia Past Surgical History: Additional Smoking Information: 1 PPD FOR 20 YEARS Alcohol Use: None Drug Use: None Adult General Chief Complaint Chief Complaint: NAUSEA/VOMITING/DIARRHEA HPI HPI Patient is a 53-year-old female presents with nausea and vomiting that began approximately 1300 yesterday. No blood in the emesis. No diarrhea. Diffuse achiness that is mild in nature. She reports being unable to tolerate any oral intake, both solid and liquid. Denies any travel. Denies any fever. Only previous surgical history is . Nothing has seemed to make the symptoms better, worse with oral intake.[] Review of Systems Review of Systems Constitutional: Denies fever or chills [] Eyes: Denies change in visual acuity, redness, or eye pain [] HENT: Denies nasal congestion or sore throat [] Respiratory: Denies cough or shortness of breath [] Cardiovascular: No chest pain or palpitations[] GI: See history of present illness[] : Denies dysuria or hematuria [] Musculoskeletal: Denies back pain or joint pain [] Integument: Denies rash or skin lesions [] Neurologic: Denies headache, focal weakness or sensory changes [] Endocrine: Denies polyuria or polydipsia [] All other systems were reviewed and found to be within normal limits, except as documented in this note. Current Medications Current Medications Current Medications Medications (Trade) Dose Ordered Sig/Pavan Start Time Stop Time Status Last Admin Dose Admin Ondansetron HCl (Zofran) 4 mg 1X ONCE 05/05/19 08:00 05/05/19 08:01 UNV Sodium Chloride 1,000 ml @ 1,000 mls/hr Q1H 05/05/19 07:58 05/05/19 08:57 UNV Allergies Allergies Allergies Coded Allergies Type Severity Reaction Last Updated Verified No Known Drug Allergies 05/05/19 No Physical Exam Physical Exam Constitutional: Well developed, well nourished, no acute distress, non-toxic appearance. [] HENT: Normocephalic, atraumatic, bilateral external ears normal, oropharynx moist, no oral exudates, nose normal. [] Eyes: PERRLA, EOMI, conjunctiva normal, no discharge. [] Neck: Normal range of motion, no tenderness, supple, no stridor. [] Cardiovascular:Heart rate is tachycardic with a regular rhythm, no murmur [] Lungs & Thorax: Bilateral breath sounds clear to auscultation [] Abdomen: Bowel sounds normal, soft, no tenderness, able to sit up and lay back without any difficulty, no Forrest's sign, no McBurney's point tenderness, no masses, no pulsatile masses. [] Skin: Warm, dry, no erythema, no rash. [] Back: No tenderness, no CVA tenderness. [] Extremities: No tenderness, no cyanosis, no clubbing, ROM intact, no edema. [] Neurologic: Alert and oriented X 3, normal motor function, normal sensory function, no focal deficits noted. [] Psychologic: Affect flat, judgement normal, mood normal. [] Current Patient Data Vital Signs Vital Signs Date Time Temp Pulse Resp B/P (MAP) Pulse Ox O2 Delivery O2 Flow Rate FiO2 05/05/19 07:47 98.3 120 20 91 Room Air EKG EKG [] Radiology/Procedures Radiology/Procedures [] Course & Med Decision Making Course & Med Decision Making Pertinent Labs and Imaging studies reviewed. (See chart for details) ED course: Patient arrived, was placed in bed, and tolerated exam well. She had IV access established, was given IV fluids as well as antiemetics. She still had one more [place] of emesis after the initial dose of antiemetics so a different and I medical was given with good results. Her heart rate improved from the 1 teens to the 90s. She was able to tolerate oral intake. In improved condition. Medical decision making: There is no evidence of obstruction, intractable nausea and vomiting, cannot Cam hyperemesis syndrome, nor other significant pathology. Her hemoglobin is slightly elevated however her renal function is good indicating a mild amount of dehydration. No evidence of hyperemesis gravidarum. No evidence of pancreatitis.[] Dragon Disclaimer Dragon Disclaimer This electronic medical record was generated, in whole or in part, using a voice recognition dictation system. Departure Departure: Impression: Primary Impression: Nausea and vomiting Disposition: HOME, SELF-CARE Condition: IMPROVED Referrals: ZEUS MOMIN MD (PCP) Follow-up in 2 days Patient Instructions: Nausea and Vomiting, [id number] Additional Instructions: Drink plenty of fluids, frequent small sips. No fatty foods, no milk, and no pepper for the next 48 hours. For the next 48 hours eat a diet rich in carbohydrates with foods such as bananas, rice, applesauce, and toast. Follow-up with your regular doctor in 2 days. Return to the ER if unable to tolerate l iquids, blood in the emesis, or any other concerns. Scripts Ondansetron Hcl (ZOFRAN) 4 Mg Tablet 1 TAB PO Q6HRS for nausea or vomiting, #20 TAB Prov: HAIR MCCALLUM DO 05/05/19 Hyoscyamine Sulfate (LEVSIN) 0.125 Mg Tablet 0.125 MG PO QID for abdominal pain/cramping, #30 TAB Prov: HAIR MCCALLUM DO 05/05/19 Problem Qualifiers Primary Impression: Nausea and vomiting Vomiting type: unspecified Vomiting Intractability: non-intractable Qualified Codes: R11.2 - Nausea with vomiting, unspecified HAIR MCCALLUM DO May 05, 2019 08:03
[2019-05-05 08:11] LABS: BASO # 0.1 x10^3/uL (0.0-0.2); BASO % 1 % (0-3); EOS % 0 % (0-3); HEMATOCRIT 46.7 % (36.0-47.0); HEMOGLOBIN 16.4 g/dL (12.0-15.5); LYMPH # 1.3 x10^3/uL (1.0-4.8); LYMPH % 12 % (24-48); MEAN CORPUSCULAR HEMOGLOBIN 33 pg (25-35); MEAN CORPUSCULAR HGB CONC 35 g/dL (31-37); MEAN CORPUSCULAR VOLUME 93 fL (79-100); MONO # 1.1 x10^3/uL (0.0-1.1); MONO % 10 % (0-9); NEUT # 8.1 x10^3uL (1.8-7.7); NEUT % 77 % (31-73); PLATELET COUNT 303 x10^3/uL (140-400); RED BLOOD COUNT 5.03 x10^6/uL (3.50-5.40); RED CELL DISTRIBUTION WIDTH 14.8 % (11.5-14.5); WHITE BLOOD COUNT 10.7 x10^3/uL (4.0-11.0)
[2019-05-05 08:16] LABS: BARBITURATES NEG (NEG); BENZODIAZEPINES NEG (NEG); CANNABINOIDS NEG (NEG); COCAINE NEG (NEG); METHADONE NEG (NEG); OPIATES NEG (NEG); PHENCYCLIDINE NEG (NEG)
[2019-05-05 08:17] LABS: AMPHETAMINE/METHAMPHETAMINE NEG (NEG)
[2019-05-05 08:20] LABS: PREG TEST PT QUAL NEGATIVE (NEG)
[2019-05-05 08:23] LABS: BACTERIA,URINE FEW /HPF (0-FEW); BILIRUBIN,URINE NEG (NEG); CLARITY,URINE HAZY; COLOR,URINE YELLOW; GLUCOSE,URINE NEG (NEG); NITRITE,URINE NEG (NEG); RBC,URINE OCC /HPF (0-2); SQUAMOUS EPITHELIAL CELL,UR FEW /LPF; UROBILINOGEN,URINE 0.2 mg/dL (0.2 mg/dL)
[2019-05-05 08:24] LABS: ALBUMIN 3.5 g/dL (3.4-5.0); CALCIUM 9.4 mg/dL (8.5-10.1); CREATININE 0.9 mg/dL (0.6-1.0); POTASSIUM 4.6 mmol/L (3.5-5.1); TOTAL BILIRUBIN 0.7 mg/dL (0.2-1.0); TOTAL PROTEIN 7.1 g/dL (6.4-8.2)
[2019-05-05] MEDS ORDERED: METOCLOPRAMIDE HCL 10 MG/2 ML VIAL. IV ONE (09:00)
[2019-05-05] MEDS ORDERED: HYOS0.1264 PO (09:16)
[2019-05-05] MEDS ORDERED: ONDA4TAB7 PO (09:16)
[2019-05-05 09:17] VITALS: BP 120/67
== END 2019-05-05 09:20 | disposition home or self-care (01) ==
LOC: ER 07:38
DX: R11.2 Nausea with vomiting, unspecified (principal); R10.84 Generalized abdominal pain; J44.9 Chronic obstructive pulmonary disease, unspecified; F32.9 Major depressive disorder, single episode, unspecified; F20.9 Schizophrenia, unspecified; F17.210 Nicotine dependence, cigarettes, uncomplicated
CPT/HCPCS: 36415; 80053; 80307; 81001; 83690; 84703; 85025; 96361; 96374; 96375; 99284; J2405; J2765; J7030

== ENCOUNTER 2019-05-05 18:21 | Emergency (ER) | payer MEDICARE ==
[~2019-05-05] VITALS: Ht 160 cm; Wt 50.1 kg
[~2019-05-05 18:21] MED LIST changes: +HYOS0.1264 PO; +ONDA4TAB7 PO
[2019-05-05] MEDS ORDERED: diphenhydrAMINE 50 MG/ML VIAL IM ONE (18:45)
[2019-05-05] MEDS ORDERED: METOCLOPRAMIDE HCL 10 MG/2 ML VIAL. IM ONE (18:45)
--- NOTE | 2019-05-05 18:46 | PHYS DOC ---
Past History Past Medical History: COPD, Depression, Schizophrenia Past Surgical History: Alcohol Use: None Drug Use: None Adult General Chief Complaint Chief Complaint: NAUSEA/VOMITING/DIARRHEA HPI HPI Patient is a 53-year-old female who presents with complaint of continued nausea. She was seen earlier today for nausea and vomiting. She states that she has been taking the Zofran that was prescribed for her and has not had any further vomiting but states that she has had some continued nausea. She also reports that she has had cold sweats. She denies any chest pain or shortness breath. She denies any fever. Currently she admits to feeling nauseated. She states that she has been able to keep down liquids since she left earlier today.[] Review of Systems Review of Systems Constitutional: Denies fever or chills [] Respiratory: Denies cough or shortness of breath [] Cardiovascular: No additional information not addressed in HPI [] GI: Positive nausea without vomiting or diarrhea [] Integument: Denies rash or skin lesions [] Allergies Allergies Allergies Coded Allergies Type Severity Reaction Last Updated Verified No Known Drug Allergies 05/05/19 No Physical Exam Physical Exam Constitutional: Well developed, well nourished, no acute distress, non-toxic appearance. [] Cardiovascular:Heart rate regular rhythm, no murmur [] Lungs & Thorax: Bilateral breath sounds clear to auscultation [] Abdomen: Bowel sounds normal, soft, no tenderness. [] Skin: Warm, dry, no erythema, no rash. [] Neurologic: Alert and oriented X 3, no focal deficits noted. [] Current Patient Data Vital Signs Vital Signs Date Time Temp Pulse Resp B/P (MAP) Pulse Ox O2 Delivery O2 Flow Rate FiO2 05/05/19 18:33 98.7 112 20 92 Room Air EKG EKG [] Radiology/Procedures Radiology/Procedures [] Course & Med Decision Making Course & Med Decision Making Pertinent Labs and Imaging studies reviewed. (See chart for details) [] Dragon Disclaimer Dragon Disclaimer This electronic medical record was generated, in whole or in part, using a voice recognition dictation system. Departure Departure: Impression: Primary Impression: Nausea Disposition: HOME, SELF-CARE Condition: STABLE Referrals: ZEUS MOMIN MD (PCP) Patient Instructions: Nausea, Adult CHRISTOPH FORBES Jr. DO May 05, 2019 18:46
[2019-05-05 19:30] VITALS: BP 128/70
== END 2019-05-05 19:39 | disposition home or self-care (01) ==
LOC: ER 18:21
DX: R11.0 Nausea (principal); J44.9 Chronic obstructive pulmonary disease, unspecified; F32.9 Major depressive disorder, single episode, unspecified; F20.9 Schizophrenia, unspecified
CPT/HCPCS: 96372; 99284; J1200; J2765

== ENCOUNTER 2020-01-22 07:19 | Emergency (ER) | payer SELFPAY ==
[~2020-01-22] VITALS: Ht 160 cm; Wt 51.0 kg
[~2020-01-22 07:19] MED LIST changes: -MAGN2400 PO; +MAGN24003 PO; +METH28OI2 TP; -METH29OI TP; +TRAZ-125 PO; -TRAZ-86 PO
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
--- NOTE | 2020-01-22 08:17 | RAD ---
EXAM: AP pelvis, AP and lateral views left hip DATE: 01/22/2020 7:24 AM INDICATION: Left hip pain COMPARISON: No Prior FINDINGS: No evidence of acute fracture or dislocation. Sclerotic focus left femoral neck likely bone island. Hip joint spaces are grossly preserved. No pubic symphysis or SI joint diastases. Moderate colonic stool content is seen, particularly in the right colon and rectosigmoid. IMPRESSION: No evidence of acute fracture or dislocation. Electronically signed by: Mika Cox MD (01/22/2020 8:14 AM) [id number]
--- NOTE | 2020-01-22 08:23 | RAD ---
EXAM: PA and Lateral Views of the Chest DATE: 01/22/2020 7:24 AM INDICATION: Cough COMPARISON: 08/22/2015, CT 11/18/2017 FINDINGS: The heart is not enlarged. Marked emphysematous changes are seen. The right suprahilar bandlike and nodular opacity measures approximately 5.3 x 1.9 cm. Right upper lung patchy airspace opacities are also seen. A spiculated nodular density is seen in the right lower lung measuring 1.2 cm. No pleural effusion or pneumothorax. IMPRESSION: Right suprahilar lung opacities likely indicates component of atelectasis although underlying mass is not excluded. In addition there is a spiculated right lower lung opacity also suspicious for malignancy. This should be further evaluated with CT, preferably with contrast if clinically appropriate. Findings discussed with CHRISTOPH FORBES at 01/22/2020 8:20 AM. FOR INTERNAL CODING PURPOSES RESULT CODE: (C) Electronically signed by: Mika Cox MD (01/22/2020 8:20 AM) [id number]
[2020-01-22] MEDS ORDERED: IPRATRPIUM/ALBUTEROL 0.5/2.5MG 3 ML NEBU. ONE (08:29)
[2020-01-22] MEDS: IPRATRPIUM/ALBUTEROL 0.5/2.5MG 3 ML NEBU. NEB ONE (08:31)
[2020-01-22 09:35] LABS: CALCIUM 8.7 mg/dL (8.5-10.1); CREATININE 0.6 mg/dL (0.6-1.0); GFR 103.4
[2020-01-22 09:41] LABS: ALBUMIN/GLOBULIN RATIO 0.8 (1.0-1.7); TOTAL BILIRUBIN 0.5 mg/dL (0.2-1.0); TOTAL PROTEIN 6.8 g/dL (6.4-8.2)
[2020-01-22 09:56] LABS: HEMOGLOBIN 11.6 g/dL (12.0-15.5); MEAN CORPUSCULAR HEMOGLOBIN 28 pg (25-35); MEAN CORPUSCULAR HGB CONC 32 g/dL (31-37); MEAN CORPUSCULAR VOLUME 88 fL (79-100); PLATELET COUNT 359 x10^3/uL (140-400); RED BLOOD COUNT 4.13 x10^6/uL (3.50-5.40); RED CELL DISTRIBUTION WIDTH 17.2 % (11.5-14.5); WHITE BLOOD COUNT 9.1 x10^3/uL (4.0-11.0)
[2020-01-22 10:04] LABS: % BANDS 1 % (0-9); % LYMPHS 12 % (24-48); % MONOS 3 % (0-10); % SEGS 84 % (35-66)
[2020-01-22 10:05] LABS: PLT ESTIMATE ADEQUATE (ADEQUATE)
[2020-01-22 10:06] LABS: POLYCHROMASIA PRESENT
[2020-01-22 10:07] LABS: ANISOCYTOSIS SLIGHT
[2020-01-22] MEDS: IOHEXOL 300 MG/ML 75 ML VIAL. IV ONE (10:08)
[2020-01-22] MEDS: HYDROcodone/APAP 7.5/325MG 1 TAB TABLET PO ONE (10:34)
--- NOTE | 2020-01-22 10:45 | RAD ---
Chest CT with contrast Clinical indications: Cough. Abnormal chest x-ray. TECHNIQUE: After IV infusion of 75 cc of Omnipaque 300, helical CT scanning of the chest was performed. PQRS compliance Statement One or more of the following individualized dose reduction techniques were utilized for this study: 1. Automated exposure control 2. Adjustment of the mA and/or kV according to patient size 3. Use of iterative reconstruction technique COMPARISON: November 18, 2017. FINDINGS: Again seen is an aortic pulmonary window lymph node which is unchanged in size measuring 12 mm. No new thoracic lymphadenopathy is evident. No focal aneurysmal dilatation or dissection of the thoracic aorta is seen. The heart size is normal and no pericardial effusion is seen. Again seen is soft tissue thickening of the right hilum and this extends superiorly and posteriorly to the pleura. This has increased in size and thickness now measuring 5.0 cm in AP dimension and 3.5 cm in transverse dimension seen on series 4 image 36. There is encasement of right upper lobe pulmonary arteries and veins. There is progressive narrowing of the right upper lobe and right middle lobe bronchi. There is complete collapse of the right middle lobe which is a new finding. There is hyperexpansion of the right lower lobe as a result. There is focal increase in irregular posterior pleural thickening of the posterior aspect of the right upper lobe. This is seen on image 22 and series 4. There is a new spiculated bilobed mass within the right lower lobe laterally which accounts for the chest x-ray finding. This measures 18 mm and greatest AP or transverse dimension. Bullous emphysema is seen bilaterally. Chronic scarring within the lateral aspect of the left upper lobe is stable. No pleural effusion or pneumothorax is evident. There is a new finding of lysis of the medial posterior aspect of the right fourth rib and soft tissue thickening seen extending towards the right neural foramen of T4-5. This is seen on series 4 images 32 through 35. No adrenal mass is evident. IMPRESSION: Increase in soft tissue thickening of the right hilum with progressive encasement of right upper lobe pulmonary vessels and right upper lobe and right middle lobe bronchi. There is a new finding of complete collapse of the right middle lobe. There is an increase in right upper lobe posterior pleural thickening. Findings are consistent with worsening malignancy of the right hilum and pleural space of the right upper lobe. There is a new finding of lysis of the posterior medial aspect of the right fourth rib with soft tissue thickening seen extending towards the right C4-5 neural foramen indicative of worsening malignant extension here. New spiculated bilobed mass within the right lower lobe consistent with a metastatic nodule or new primary malignant lesion given the spiculation. Electronically signed by: Arsh Rivera MD (01/22/2020 10:42 AM) [facility] [place]
[2020-01-22 12:44] VITALS: BP 131/63
== END 2020-01-22 14:54 | disposition short-term general hospital (02) ==
LOC: ER 07:19
DX: R91.1 Solitary pulmonary nodule (principal); M25.551 Pain in right hip; J44.9 Chronic obstructive pulmonary disease, unspecified; F20.9 Schizophrenia, unspecified; F32.9 Major depressive disorder, single episode, unspecified
CPT/HCPCS: 36415; 71046; 71260; 73502; 80053; 85007; 85025; 87040; 94640; 99285; J7620; Q9967

== ENCOUNTER → 2020-02-26 | Emergency (ER) | payer SELFPAY ==
[~2020-02-26] VITALS: Ht 160 cm; Wt 50.0 kg
[~2020-02-26] MED LIST changes: +ALBU2.5V8 IH; +ASPIRIN 81 MG TAB.CHEW PO ONE; +FURO-69 PO; +FUROSEMIDE 40 MG TABLET PO ONE; +IPRA3AMP29 NEB; +IPRATRPIUM/ALBUTEROL 0.5/2.5MG 3 ML NEBU. NEB ONE; +IPRATRPIUM/ALBUTEROL 0.5/2.5MG 3 ML NEBU. ONE; +IV RINGERS SOLUTION,LACTATED 1,000 ML IV SCH; +MAGNESIUM HYDROXIDE 2,400 MG/30 ML ORAL.SUSP. PO ONE; +MAGNESIUM SULFATE 2GM 50 ML IV ONE
--- NOTE | 2020-02-26 20:04 | PHYS DOC ---
Past History Past Medical History: Anxiety, Bronchitis, CAD, Cancer, CHF, COPD, Depression, Schizophrenia Past Medical History Metastatic Lung Cancer- Metastatic bilateral hips Past Surgical History: Past Surgical History cervical Smoking: Cigarettes, Quit Less Than 1 Year Alcohol Use: None Drug Use: None Adult General Chief Complaint Chief Complaint: COUGH.. " I decided to go out.. without my oxygen.. to enjoy the sun ... but I got short of breath... and starting one of my coughing spells.. I know I am not to go with out my oxygen.. I have bad COPD.. and now lung cancer.. that gone to my bones..I see Brenda at [facility].. I am to start radiation on chemo... " HPI HPI Patient is a 54 year old female who presents with above hx and complaints of dyspnea and coughing after going about her oxygen. Patient has quit smoking. No travel recently outside the [place] area. No specific ill contacts. Has history of COPD and lung cancer with metastatic spread. Patient not currently on chemotherapy and has not yet received radiation.. Pt. follows with Dr Gutierrez at [facility] for lung cancer and Dr. Momin for primary. Patient last seen here on 01/22/2020 for her COPD and hip pain. Patient at that time had spiculated bi lobe masses with collapse of right middle lobe. Pt. patient treated for pneumonia in November. Patient hip pain has been present approximately 3-4 months. Currently on 2 L patient is Sats are above 96%. Patient denies history of DVT or pulmonary embolisms. Patient not currently on any anticoagulants. Pt has had Pneumonia and Flu vaccinations. Review of Systems Review of Systems Constitutional: Denies fever or chills [] Eyes: Denies change in visual acuity, redness, or eye pain [] HENT: Denies nasal congestion or sore throat [] Respiratory: Patient complains of cough and shortness of breath [] Cardiovascular: No additional information not addressed in HPI-complaints of tachycardia GI: Denies abdominal pain, nausea, vomiting, bloody stools or diarrhea [] : Denies dysuria or hematuria [] Musculoskeletal: Patient complains of bilateral hip pain with more pain in left hip. Integument: Denies rash or skin lesions [] Neurologic: Denies headache, focal weakness or sensory changes [] Endocrine: Denies polyuria or polydipsia [] All other systems were reviewed and found to be within normal limits, except as documented in this note. Family History Family History Noncontributory to presentation Current Medications Current Medications See nursing for home meds Allergies Allergies Allergies Coded Allergies Type Severity Reaction Last Updated Verified No Known Drug Allergies 05/05/19 No Physical Exam Physical Exam Constitutional: no acute distress, ill in appearance HENT: Normocephalic, atraumatic, bilateral external ears normal, oropharynx moist, no oral exudates, nose normal. [] Eyes: PERRLA, EOMI, conjunctiva normal, no discharge. [] Neck: Normal range of motion, no tenderness, supple, no stridor. Surgical scar. Cardiovascular: Tachycardia Heart rate regular rhythm, no murmur []. Occasional PVC per monitor and PAC Lungs & Thorax: Bilateral breath sounds equal at apexes with scattered wheezes on auscultation []Does have some basilar crackles. Some Rhonchi Rt. lung carr. Abdomen: Bowel sounds normal, soft, no tenderness, no masses, no pulsatile masses. Old surgery scar. Skin: Warm, dry, no erythema, no rash. [] Back: No tenderness, no CVA tenderness. [] Extremities: Bilateral hip tenderness, no cyanosis, no clubbing, ROM intact, no edema. [] No obvious cording in legs.( Muscle loss/ Hx. of wt loss) Neurologic: Alert and oriented X 3, normal motor function, normal sensory function, no focal deficits noted. [] Psychologic: Affect anxious, judgement normal, mood normal. [] EKG EKG My interpretation EKG shows a tachycardia rate and 3. Premature atrial contraction. No findings acute STEMI of contralateral changes.[] Radiology/Procedures Radiology/Procedures Review prior CT of chest and X ray 01/22/2020 visit. [][address] [address] IMAGING REPORT Signed PATIENT: BALJINDER MCGEE ACCOUNT: [id number] : 1965 LOCATION: ER AGE: 54 SEX: F EXAM STATUS: REG ER ORD. PHYSICIAN: SAHARA DAWSON MD REASON: cp, dyspnea, lung ca, COUGH, X 2 DAYS PROCEDURE: CHEST PA & LATERAL Two-view chest dated 02/26/2020. Comparison made to 01/22/2020. Clinical indication: Chest pain and dyspnea. History of lung cancer. Cough for 2 days. FINDINGS: PA and lateral views obtained. Heart and mediastinal contours are stable. There is irregular increased density and volume loss at the suprahilar region on the right, stable from prior study. Lungs are hyperinflated. There are prominent interstitial markings bilaterally, unchanged. No pleural effusion or pneumothorax. IMPRESSION: 1. No evidence of focal pneumonia. 2. Suprahilar increased density and volume loss consistent with history of known lung cancer postradiation treatment. This is stable from prior exam. Electronically signed by: Franck Flores MD (02/26/2020 8:53 PM) [id number] DICTATED AND SIGNED BY: FRANCK FLORES MD DATE: 02/26/202052 CC: SAHARA DAWSON MD; ZEUS MOMIN MD ~ Course & Med Decision Making Course & Med Decision Making Pertinent Labs and Imaging studies reviewed. (See chart for details) Discussed risks and benefit s of admit.. Pt. requesting to go home. Pt has oxygen at home to use as previously directed. Pt. to take Fruit juice daily. Do daily wt. and record to show to doctor. Take Lasix 40 mg in AM and then 20 mg day. Pt. repeat a dose of MOM 30 cc in AM. Pt. to start breathing tx four times a day . Use MDI when not at home. Keep follow-up with for her Metastatic Lung Cancer. Keep follow up with Dr. Momin. Take Home meds as directed for your hip pain. Practice social isolation and distance. Avoid grounds. Avoid travel. Follow-up with [facility] [place] 2] for up to date information of Covid 19. Impression; 1. Dyspnea- known O2 dependent COPD at 2 L 2. History of metastatic lung cancer- See prior CT 01/22/2020 3. History of bilateral hip pain left worse than right- suspect metastatic cancer 4. Hypo-magnesium 1.7 5. Malnutrition albumin 3.1 6. Elevated alkaline phosphatase 139 7. CHF- systolic dysfunction BNP 2516 8. COPD with marked interstitial and emphysematous changes Pt. high risks for re-evaluation and admission. Suspect Morbid prognosis. Pt. to discuss advance directives with family or her primary, or significant other that can make decisions if she can't. [] Dragon Disclaimer Dragon Disclaimer This electronic medical record was generated, in whole or in part, using a voice recognition dictation system. Departure Departure: Disposition: 01 HOME/RESIDENCE PRIOR TO ADM Condition: STABLE Referrals: ZEUS MOMIN MD (PCP) Scripts Albuterol Sulfate (VENTOLIN HFA INHALER) 18 Gm Hfa.aer.ad 2 PUFF IH PRN Q4HRS PRN for FOR ASTHMA for 30 Days, INHALER 0 Refills Prov: SAHARA DAWSON MD 02/26/20 Ipratropium/Albuterol Sulfate (DUONEB 0.5-3(2.5) MG/3 ML) 3 Ml Ampul.neb 3 ML NEB QID for copd, lung cancer, for 90 Days, #360 EACH Prov: SAHARA DAWSON MD 02/26/20 Furosemide (LASIX) 20 Mg Tablet 20 MG PO DAILY for chf, #60 TAB Prov: SAHARA DAWSON MD 02/26/20 Dragon Disclaimer This chart was dictated in whole or in part using Voice Recognition software in a busy, high-work load, and often noisy Emergency Department environment. It may contain unintended and wholly unrecognized errors or omissions. Dragon Disclaimer This chart was dictated in whole or in part using Voice Recognition software in a busy, high-work load, and often noisy Emergency Department environment. It may contain unintended and wholly unrecognized errors or omissions. Dragon Disclaimer This chart was dictated in whole or in part using Voice Recognition software in a busy, high-work load, and often noisy Emergency Department environment. It may contain unintended and wholly unrecognized errors or omissions. SAHARA DAWSON MD Feb 26, 2020 20:04
--- NOTE | 2020-02-26 20:56 | RAD ---
Two-view chest dated 02/26/2020. Comparison made to 01/22/2020. Clinical indication: Chest pain and dyspnea. History of lung cancer. Cough for 2 days. FINDINGS: PA and lateral views obtained. Heart and mediastinal contours are stable. There is irregular increased density and volume loss at the suprahilar region on the right, stable from prior study. Lungs are hyperinflated. There are prominent interstitial markings bilaterally, unchanged. No pleural effusion or pneumothorax. IMPRESSION: 1. No evidence of focal pneumonia. 2. Suprahilar increased density and volume loss consistent with history of known lung cancer postradiation treatment. This is stable from prior exam. Electronically signed by: Franck Flores MD (02/26/2020 8:53 PM) [id number]
[2020-02-26 20:57] LABS: BASO # 0.1 x10^3/uL (0.0-0.2); BASO % 1 % (0-3); EOS % 0 % (0-3); HEMATOCRIT 37.7 % (36.0-47.0); HEMOGLOBIN 12.5 g/dL (12.0-15.5); LYMPH # 1.4 x10^3/uL (1.0-4.8); LYMPH % 15 % (24-48); MEAN CORPUSCULAR HEMOGLOBIN 29 pg (25-35); MEAN CORPUSCULAR HGB CONC 33 g/dL (31-37); MEAN CORPUSCULAR VOLUME 88 fL (79-100); MONO % 11 % (0-9); NEUT # 6.8 x10^3uL (1.8-7.7); NEUT % 73 % (31-73); PLATELET COUNT 391 x10^3/uL (140-400); RED BLOOD COUNT 4.29 x10^6/uL (3.50-5.40); RED CELL DISTRIBUTION WIDTH 16.4 % (11.5-14.5); WHITE BLOOD COUNT 9.2 x10^3/uL (4.0-11.0)
[2020-02-26 21:08] LABS: CALCIUM 9.3 mg/dL (8.5-10.1); CREATININE 0.7 mg/dL (0.6-1.0); GFR 86.6; POTASSIUM 3.7 mmol/L (3.5-5.1)
[2020-02-26 21:09] LABS: AMPHETAMINE/METHAMPHETAMINE NEG (NEG); BARBITURATES NEG (NEG); BENZODIAZEPINES NEG (NEG); CANNABINOIDS NEG (NEG); COCAINE NEG (NEG); METHADONE NEG (NEG); OPIATES POS (NEG); PHENCYCLIDINE NEG (NEG)
[2020-02-26 21:15] LABS: BACTERIA,URINE MANY /HPF (0-FEW); BILIRUBIN,URINE NEG (NEG); CLARITY,URINE HAZY; COLOR,URINE YELLOW; GLUCOSE,URINE NEG (NEG); NITRITE,URINE NEG (NEG); SQUAMOUS EPITHELIAL CELL,UR MANY /LPF
[2020-02-26 21:22] LABS: ALBUMIN 3.1 g/dL (3.4-5.0); DIRECT BILIRUBIN 0.1 mg/dL (0.0-0.2); MAGNESIUM 1.7 mg/dL (1.8-2.4); TOTAL BILIRUBIN 0.4 mg/dL (0.2-1.0); TOTAL PROTEIN 6.9 g/dL (6.4-8.2)
[2020-02-26 21:30] LABS: INFLUENZA A PATIENT NEGATIVE (NEGATIVE); INFLUENZA B PATIENT NEGATIVE (NEGATIVE)
[2020-02-26 23:40] VITALS: BP 124/52
--- NOTE | 2020-02-27 00:21 | EKG ---
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
[2020-02-27 14:42] LABS: THYROID STIM HORMONE (TSH) 0.674 uIU/mL (0.358-3.740)
== END ==
LOC: ER 19:40
DX: J44.9 Chronic obstructive pulmonary disease, unspecified (principal); E83.42 Hypomagnesemia; E46 Unspecified protein-calorie malnutrition; Z68.1 Body mass index [BMI] 19.9 or less, adult; I50.9 Heart failure, unspecified; I25.10 Atherosclerotic heart disease of native coronary artery without angina pectoris; Z87.891 Personal history of nicotine dependence
CPT/HCPCS: 36415; 71046; 80048; 80061; 80076; 80307; 81001; 82550; 83690; 83735; 83880; 84443; 84484; 85025; 85379; 85610; 85730; 87040; 87070; 87086; 87804; 87880; 93005; 94640; 99285; J7120

== ENCOUNTER 2020-04-03 05:40 | Emergency (ER) | payer OTHER ==
[~2020-04-03] VITALS: Ht 160 cm; Wt 50.0 kg
[~2020-04-03 05:40] MED LIST changes: -ASPIRIN 81 MG TAB.CHEW PO ONE; -FUROSEMIDE 40 MG TABLET PO ONE; -IPRATRPIUM/ALBUTEROL 0.5/2.5MG 3 ML NEBU. NEB ONE; -IPRATRPIUM/ALBUTEROL 0.5/2.5MG 3 ML NEBU. ONE; -IV RINGERS SOLUTION,LACTATED 1,000 ML IV SCH; -MAGNESIUM HYDROXIDE 2,400 MG/30 ML ORAL.SUSP. PO ONE; -MAGNESIUM SULFATE 2GM 50 ML IV ONE
--- NOTE | 2020-04-03 05:51 | PHYS DOC ---
Past History Past Medical History: Anxiety, Bronchitis, CAD, Cancer, CHF, COPD, Depression, Schizophrenia Additional Past Medical Histor: LUNG CA, BONE CA (SAHARA LIZ MD) Past Surgical History: , Other (SAHARA LIZ MD) Smoking: Cigarettes, Quit Less Than 1 Year Alcohol Use: None Drug Use: None (SAHARA LIZ MD) General Adult HPI: HPI: ".. I got where I couldn't breath... I ve been getting more short of breath... the last few days... and my Hips ... are hurting too much.. I got lung cancer..it has spread to my bones... I don't know if I want to be ... intubated... 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 Pt. reports increased dyspnea, cough, increased bilateral hip pain and generalized weakness for the last several days. Pt. was diagnosis of Lung cancer in 2005. Recent Dx. of Bone metastatic cancer 3 months ago. Patient denies any recent ill contacts. No recent travel outside [facility]. No change in meds. Patient not recently on antibiotics. Does have a significant history of COPD, oxygen dependent at 5 L. No recent falls. Patient normally follows with Dr. Momin as a primary, Dr. Hodges and Dr. Bell for pulmonary, and Dr. Gutierrez for oncology. Patient was last admitted here on 11/11/2019 . (SAHARA LIZ MD) Review of Systems: Review of Systems: Constitutional: Denies fever or chills Eyes: Denies change in visual acuity HENT: Denies nasal congestion or sore throat Respiratory: Complaints cough and shortness of breath Cardiovascular: Denies chest pain or edema GI: Denies abdominal pain, nausea, vomiting, bloody stools or diarrhea : Denies dysuria Musculoskeletal: Complaints of bilateral hip pain- worse than usual. Integument: Denies rash Neurologic: Denies headache, focal weakness or sensory changes Endocrine: Denies polyuria or polydipsia Lymphatic: Denies swollen glands Psychiatric: Denies depression or anxiety (SAHARA LIZ MD) Heart Score: Risk Factors: Risk Factors: DM, Current or recent (<one month) smoker, HTN, HLP, family history of CAD, obesity. Risk Scores: Score 0 - 3: 2.5% MACE over next 6 weeks - Discharge Home Score 4 - 6: 20.3% MACE over next 6 weeks - Admit for Clinical Observation Score 7 - 10: 72.7% MACE over next 6 weeks - Early Invasive Strategies (SAHARA LIZ MD) Family History: Family History: 3 sisters 3 brothers. Patient lives on her own. She has a 24-year-old daughter. Patient recently quit smoking. Patient does not use alcohol or recreational drugs. (SAHARA LIZ MD) Current Medications: Current Meds: See nursing for home medications (SAHARA LIZ MD) Allergies: Allergies: Allergies Coded Allergies Type Severity Reaction Last Updated Verified No Known Drug Allergies 05/05/19 No (SAHARA LIZ MD) Physical Exam: PE: Constitutional: inacute distress, chronically ill in appearance. [] HENT: Normocephalic, atraumatic, bilateral external ears normal, oropharynx moist, no oral exudates, nose normal. [] Eyes: PERRLA, EOMI, conjunctiva normal, no discharge. [] Neck: Normal range of motion, no tenderness, supple, no stridor. Biopsy scar at trachea Cardiovascular: Tachycardia heart rate, frequent PVCs, PMI to the left Lungs & Thorax: Bilateral breath sounds equal at apex X with scattered wheezes throughout on auscultation [] Abdomen: Bowel sounds normal, soft, no tenderness, no masses, no pulsatile masses. Scar Skin: Warm, dry, no erythema, no rash. Poor turgor Back: No tenderness, no CVA tenderness. [] Extremities: No tenderness, no cyanosis, no clubbing, ROM intact, no edema. Muscle loss Neurologic: Alert and oriented X 3, n moves extremities on request, has distal sensory,, no gross focal deficits noted. [] Psychologic: Affect anxious, judgement normal, mood normal. [] (SAHARA LIZ MD) Current Patient Data: Labs: Laboratory Tests Test 04/03/20 05:53 04/03/20 06:06 White Blood Count 15.0 x10^3/uL Red Blood Count 3.92 x10^6/uL Hemoglobin 11.3 g/dL Hematocrit 34.5 % Mean Corpuscular Volume 88 fL Mean Corpuscular Hemoglobin 29 pg Mean Corpuscular Hemoglobin Concent 33 g/dL Red Cell Distribution Width 14.8 % Platelet Count 405 x10^3/uL Neutrophils (%) (Auto) 81 % Lymphocytes (%) (Auto) 11 % Monocytes (%) (Auto) 7 % Eosinophils (%) (Auto) 1 % Basophils (%) (Auto) 0 % Neutrophils # (Auto) 12.1 x10^3uL Lymphocytes # (Auto) 1.6 x10^3/uL Monocytes # (Auto) 1.1 x10^3/uL Eosinophils # (Auto) 0.1 x10^3/uL Basophils # (Auto) 0.0 x10^3/uL Prothrombin Time 10.8 SEC Prothromb Time International Ratio 1.0 Activated Partial Thromboplast Time 30 SEC D-Dimer (Mariah) 2.60 mg/L Sodium Level 137 mmol/L Potassium Level 3.9 mmol/L Chloride Level 96 mmol/L Carbon Dioxide Level 33 mmol/L Anion Gap 8 Blood Urea Nitrogen 7 mg/dL Creatinine 0.6 mg/dL Estimated GFR (Cockcroft-Gault) 103.4 Glucose Level 108 mg/dL Lactic Acid Level 0.9 mmol/L Calcium Level 8.8 mg/dL Magnesium Level 1.7 mg/dL Total Bilirubin 0.4 mg/dL Direct Bilirubin 0.2 mg/dL Aspartate Amino Transf (AST/SGOT) 82 U/L Alanine Aminotransferase (ALT/SGPT) 147 U/L Alkaline Phosphatase 265 U/L Creatine Kinase 18 U/L Troponin I Quantitative < 0.017 ng/mL UW-Bsw-P-Type Natriuretic Peptide 2324 pg/mL Total Protein 7.4 g/dL Albumin 2.5 g/dL Lipase 60 U/L Blood Gas pH 7.44 Blood Gas PCO2 50 mmHg Blood Gas PO2 60 mmHg Blood Gas HCO3 34 mmol/L Arterial Bld O2 Saturation (Calc) 91 % FiO2 100 % Current Medications Medications (Trade) Dose Ordered Sig/Pavan Route PRN Reason Start Time Stop Time Status Last Admin Dose Admin Lactated Ringer's 1,000 ml @ 100 mls/hr Q10H IV 04/03/20 06:00 04/03/20 15:59 04/03/20 06:00 Methylprednisolone Sodium Succinate (SOLU-Medrol 125MG VIAL) 125 mg 1X ONCE IV 04/03/20 06:15 04/03/20 06:20 DC 04/03/20 06:15 Ceftriaxone Sodium 1 gm/ Sodium Chloride 50 ml @ 100 mls/hr 1X ONCE IV 04/03/20 06:15 04/03/20 06:44 DC 04/03/20 06:15 Azithromycin 500 mg/Sodium Chloride 250 ml @ 250 mls/hr 1X ONCE IV 04/03/20 06:15 04/03/20 07:14 DC 04/03/20 07:15 Albuterol/ Ipratropium (Duoneb) 3 ml STK-MED ONCE .ROUTE 04/03/20 06:07 04/03/20 06:07 DC Sodium Chloride 250 ml @ As Directed STK-MED ONCE .ROUTE 04/03/20 06:27 04/03/20 06:27 DC Sodium Chloride 50 ml @ As Directed STK-MED ONCE .ROUTE 04/03/20 06:27 04/03/20 06:28 DC Azithromycin (Zithromax) 500 mg STK-MED ONCE IV 04/03/20 06:27 04/03/20 06:28 DC Ceftriaxone Sodium (Rocephin) 1 gm STK-MED ONCE .ROUTE 04/03/20 06:28 04/03/20 06:28 DC Iohexol (Omnipaque 350 Mg/ml) 100 ml 1X ONCE IV 04/03/20 07:00 04/03/20 07:11 DC Vital Signs: Vital Signs Date Time Temp Pulse Resp B/P (MAP) Pulse Ox O2 Delivery O2 Flow Rate FiO2 04/03/20 08:17 147 45 92 NonRebreather Mask 15.0 04/03/20 07:57 151/83 (105) 04/03/20 05:40 97.8 (STEPHANIE MURRIETA MD) EKG: EKG: EKG shows a sinus tachycardia with frequent PVCs interventricular block, bimodal P waves . [] (SAHARA LIZ MD) Radiology/Procedures: Radiology/Procedures: X-ray pending at shift change [] (SAHARA LIZ MD) Radiology/Procedures: [address] [address] IMAGING REPORT Signed PATIENT: BALJINDER MCGEE ACCOUNT: [id number] : 1965 LOCATION: ER AGE: 54 SEX: F EXAM STATUS: REG ER ORD. PHYSICIAN: SAHARA LIZ MD REASON: Dyspnea, hypoxia PROCEDURE: PORTABLE CHEST 1V PORTABLE CHEST 1V Clinical Indication: Dyspnea, hypoxia. Comparison: 2 view chest. February 26, 2020. CT chest with contrast 01/22/2020. Findings: Cardiac size is normal. Spiculated opacity in the medial right upper lobe is unchanged. There is hilar retraction, unchanged. There is collapse of the right middle lobe, appears larger than on prior study. Spiculated nodule in the right lung base is less well seen. There are diffusely increased interstitial markings. There is emphysema. No pleural effusion or pneumothorax. ACDF hardware lower cervical spine. IMPRESSION: 1. Spiculated opacity in the right upper lobe with hilar retraction is unchanged. 2. There is right middle lobe collapse, larger than on prior study. 3. Spiculated nodule in the right lung base. 4. Emphysema, chronic interstitial changes. Electronically signed by: Mimi Maldonado MD (04/03/2020 6:19 AM) [id number] DICTATED AND SIGNED BY: MIMI MALDONADO MD DATE: 04/03/20618 CC: SAHARA LIZ MD; STEPHANIE MURRIETA MD; ZEUS MOMIN MD ~ [place] [id number] IMAGING REPORT Signed PATIENT: BALJINDER MCGEE ACCOUNT: [id number] : 1965 LOCATION: ER AGE: 54 SEX: F EXAM STATUS: REG ER ORD. PHYSICIAN: STEPHANIE MURRIETA MD REASON: shortness of breath, ddimer 2.60, hx of lung cancer PROCEDURE: CT ANGIOGRAPHY CHEST EXAM: CT Pulmonary Angiogram INDICATION: Shortness of breath, d-dimer 2.6. History of lung cancer. TECHNIQUE: Multi-detector row images were acquired from the thoracic inlet through the upper abdomen with the use of IV contrast. Sagittal and coronal images were acquired from the transaxial data. MIP images of the pulmonary arteries were obtained. All CT scans performed at this facility utilize dose optimization techniques as appropriate to the exam, including the following: Automated exposure control and adjustment of the mA and/or KV according to patient size (this includes techniques or standardized protocols for targeted exams where dose is indication/reason for exam). IV CONTRAST: Administered COMPARISON: 01/22/2020 CT chest with contrast FINDINGS: PULMONARY ARTERIES: No pulmonary emboli are identified. CARDIOVASCULAR: There is dilation of the left ventricle. Aorta is normal caliber. MEDIASTINUM & ELIA: Further increase in soft tissue thickening in the right superior hilum with stable, lesser thickening of the lymph nodes in the contralateral (left) hilum. There is frothy fluid in the right mainstem bronchus with soft tissue occluding several branches of the right middle and right lower lobe bronchi. LUNGS: Panlobular emphysema with worsening lobar atelectasis of the right middle lobe, greater soft tissue consolidation in the right upper lobe, and enlargement in a spiculated right lower lobe pulmonary nodule from 1.3 cm transverse diameter (coronal image 35 of series 5 on the prior study) to 1.6 cm on the current exam (image 41 of coronal series 6). In AP dimensions, it measures 2.3 cm compared with 4.9 cm previously (image 83 of series 7 compared with image 80 of series 6 on the prior study) and 1.2 cm craniocaudal compared with 0.9 cm previously. PLEURAL SPACE: No pleural effusions or pneumothorax. OSSEOUS & SOFT TISSUE: Similar bone erosion of the posterior right fourth rib near the costotransverse junction. ABDOMEN: Visualized upper abdomen shows narrowing of the celiac axis at its origin. IMPRESSION: 1. No pulmonary emboli. 2. Right mainstem bronchus with frothy fluid and mucus plugging in several lobes of the right lung, resulting in lobar atelectasis of the right middle lobe and probable postobstructive atelectasis or pneumonia that has worsened in the right upper lobe in the interval. An underlying neoplastic process is of concern, particularly given the erosion in the posterior right fourth rib. 3. Interval enlargement in a spiculated right lower lobe pulmonary nodule, highly suspicious for lung cancer. Electronically signed by: Ryan Weinstein MD (04/03/2020 8:10 AM) [id number] DICTATED AND SIGNED BY: RYAN WEINSTEIN MD DATE: 04/03/20809 CC: STEPHANIE MURRIETA MD; ZEUS MOMIN MD ~ (STEPHANIE MURRIETA MD) Course & Med Decision Making: Course & Med Decision Making Pertinent Labs and Imaging studies reviewed. (See chart for details). Pt. labs, xray pending at shift change. Endorsed to Dr. Murrieta at shift change. 06:15 hrs. Impression: 1. Acute on chronic respiratory failure 2. History of lung cancer with metastatic spread to bones [] (SAHARA LIZ MD) Course & Med Decision Making Addendum by Dr. Stephanie Murrieta at 0836: I assumed care of patient from Dr. Liz at 0600. I followed up with the patient's testing and imaging ordered by Dr. Jose Enrique garza prior to my arrival in the emergency department. Patient's blood work was noted to have an elevated d-dimer level compared to previous value on February 26, 2020. X-ray imaging also showed evidence of increasing middle lobe collapse compared to previous. Work of breathing after DuoNeb initially improved, however patient did start to worsen in the emergency department requiring initiation of BiPAP with improvement in work of breathing. CT imaging was obtained while patient was in the emergency department and showed no evidence of pulmonary embolism but did show evidence of mucus plugging which is likely contributing to the patient's sudden change in respiratory status. I spoke with the patient regarding CODE STATUS. Given her multiple comorbidities I did explain that she was at high risk of if her condition worsens to the point she would need to be on mechanical ventilation. As she has poor respiratory function at baseline, need for invasive mechanical ventilation is something she may not be able to recover from and be extubated. Patient did voice understanding of this. After careful consideration, the patient states that she wishes to be full CODE STATUS at this time. The patient will need a higher level of care than can be provided at [facility] including need for pulmonology consult. In speaking with patient, she is agreeable to transfer to [facility] as she does follow with Dr. Alfredo of pulmonology at this facility. I spoke with the hospitalist, Dr. Mcfarland, who agreed to accept patient for transfer. Review of vital signs at this time notes improvement in respiratory status after initiation of BiPAP. Patient's SPO2 is 100%, respirations are 28 and heart rate is slightly improved to 126 bpm. Blood pressure is 126/62. Patient's work of breathing appears improved at this time. We will proceed on with transfer by ground ambulance to [facility]. Given worsening respiratory status, and given [place] the [place] with a high number of new positive cases of COVID-19, the patient was treated as a possible COVID-19 infection and placed under advanced respiratory and droplet precautions. A COVID-19 swab was collected in the emergency department prior to transfer. PPE: N 95 mask, face shield, eye protection, gown, hat, and gloves were worn during this patient encounter. Critical CARE time excluding procedures: 60 minutes (STEPHANIE MURRIETA MD) Dragon Disclaimer: Dragon Disclaimer: This electronic medical record was generated, in whole or in part, using a voice recognition dictation system. (SAHARA LIZ MD) Departure Departure: Impression: Primary Impression: Acute and chronic respiratory failure Additional Impressions: Atelectasis of right lung Metastatic lung cancer (metastasis from lung to other site) Qualified Codes: C34.90 - Malignant neoplasm of unspecified part of unspecified bronchus or lung COPD (chronic obstructive pulmonary disease) Qualified Codes: J44.9 - Chronic obstructive pulmonary disease, unspecified Disposition: 02 XFER SHT-TRM HOSP Condition: STABLE Referrals: ZEUS MOMIN MD (PCP) Dragon Disclaimer This chart was dictated in whole or in part using Voice Recognition software in a busy, high-work load, and often noisy Emergency Department environment. It may contain unintended and wholly unrecognized errors or omissions. (SAHARA LIZ MD) SAHARA LIZ MD April 03, 2020 05:51 STEPHANIE MURRIETA MD April 03, 2020 08:43
[2020-04-03] MEDS ORDERED: IV RINGERS SOLUTION,LACTATED 1,000 ML IV SCH (06:00)
[2020-04-03] MEDS ORDERED: IPRATRPIUM/ALBUTEROL 0.5/2.5MG 3 ML NEBU. ONE (06:07)
[2020-04-03] MEDS ORDERED: AZITHROMYCIN 500 MG in IV NORMAL SALINE 250ML 250 ML IV ONE (06:15)
[2020-04-03] MEDS ORDERED: methylPREDNISolone SOD SUCC PF 125 MG/2 ML VIAL. IV ONE (06:15)
--- NOTE | 2020-04-03 06:22 | RAD ---
PORTABLE CHEST 1V Clinical Indication: Dyspnea, hypoxia. Comparison: 2 view chest. February 26, 2020. CT chest with contrast 01/22/2020. Findings: Cardiac size is normal. Spiculated opacity in the medial right upper lobe is unchanged. There is hilar retraction, unchanged. There is collapse of the right middle lobe, appears larger than on prior study. Spiculated nodule in the right lung base is less well seen. There are diffusely increased interstitial markings. There is emphysema. No pleural effusion or pneumothorax. ACDF hardware lower cervical spine. IMPRESSION: 1. Spiculated opacity in the right upper lobe with hilar retraction is unchanged. 2. There is right middle lobe collapse, larger than on prior study. 3. Spiculated nodule in the right lung base. 4. Emphysema, chronic interstitial changes. Electronically signed by: Zev Maldonado MD (04/03/2020 6:19 AM) [id number]
[2020-04-03] MEDS ORDERED: IV NORMAL SALINE 50ML 50 ML ONE (06:27)
[2020-04-03] MEDS ORDERED: AZITHROMYCIN 500 MG VIAL. IV ONE (06:27)
[2020-04-03] MEDS ORDERED: IV NORMAL SALINE 250ML 250 ML ONE (06:27)
[2020-04-03] MEDS ORDERED: cefTRIAXone SODIUM 1 GM VIAL ONE (06:28)
--- NOTE | 2020-04-03 06:31 | EKG ---
[address] [address] Test Date: 2020-04-03 Test Time: 05:50:53 Pat Name: BALJINDER MCGEE Department: Room: Gender: F Mold Laminator: : 1965 Requested By: SAHARA DAWSON Order Number: [id number] Reading MD: Zeb Canas MD Measurements Intervals [place] Rate: 107 P: 72 [place]: 140 QRS: 58 QRSD: 84 T: 71 QT: 298 QTc: 403 Interpretive Statements SINUS TACHYCARDIA PVC'S Electronically Signed On 04-04-2020 11:44:25 CDT by Zeb Canas MD
[2020-04-03 06:32] LABS: BASO % 0 % (0-3); EOS # 0.1 x10^3/uL (0.0-0.7); EOS % 1 % (0-3); HEMATOCRIT 34.5 % (36.0-47.0); HEMOGLOBIN 11.3 g/dL (12.0-15.5); LYMPH # 1.6 x10^3/uL (1.0-4.8); LYMPH % 11 % (24-48); MEAN CORPUSCULAR HEMOGLOBIN 29 pg (25-35); MEAN CORPUSCULAR HGB CONC 33 g/dL (31-37); MEAN CORPUSCULAR VOLUME 88 fL (79-100); MONO # 1.1 x10^3/uL (0.0-1.1); MONO % 7 % (0-9); NEUT # 12.1 x10^3uL (1.8-7.7); NEUT % 81 % (31-73); PLATELET COUNT 405 x10^3/uL (140-400); RED BLOOD COUNT 3.92 x10^6/uL (3.50-5.40); RED CELL DISTRIBUTION WIDTH 14.8 % (11.5-14.5)
[2020-04-03 06:42] LABS: CALCIUM 8.8 mg/dL (8.5-10.1); CREATININE 0.6 mg/dL (0.6-1.0); GFR 103.4; POTASSIUM 3.9 mmol/L (3.5-5.1)
[2020-04-03 06:57] LABS: ALBUMIN 2.5 g/dL (3.4-5.0); DIRECT BILIRUBIN 0.2 mg/dL (0.0-0.2); MAGNESIUM 1.7 mg/dL (1.8-2.4); TOTAL BILIRUBIN 0.4 mg/dL (0.2-1.0); TOTAL PROTEIN 7.4 g/dL (6.4-8.2)
[2020-04-03] MEDS ORDERED: IOHEXOL 350 MG/ML 100 ML VIAL. IV ONE (07:00)
[2020-04-03 07:06] LABS: BGAS PH 7.44 (7.35-7.45)
--- NOTE | 2020-04-03 08:13 | RAD ---
EXAM: CT Pulmonary Angiogram INDICATION: Shortness of breath, d-dimer 2.6. History of lung cancer. TECHNIQUE: Multi-detector row images were acquired from the thoracic inlet through the upper abdomen with the use of IV contrast. Sagittal and coronal images were acquired from the transaxial data. MIP images of the pulmonary arteries were obtained. All CT scans performed at this facility utilize dose optimization techniques as appropriate to the exam, including the following: Automated exposure control and adjustment of the mA and/or KV according to patient size (this includes techniques or standardized protocols for targeted exams where dose is indication/reason for exam). IV CONTRAST: Administered COMPARISON: 01/22/2020 CT chest with contrast FINDINGS: PULMONARY ARTERIES: No pulmonary emboli are identified. CARDIOVASCULAR: There is dilation of the left ventricle. Aorta is normal caliber. MEDIASTINUM & ELIA: Further increase in soft tissue thickening in the right superior hilum with stable, lesser thickening of the lymph nodes in the contralateral (left) hilum. There is frothy fluid in the right mainstem bronchus with soft tissue occluding several branches of the right middle and right lower lobe bronchi. LUNGS: Panlobular emphysema with worsening lobar atelectasis of the right middle lobe, greater soft tissue consolidation in the right upper lobe, and enlargement in a spiculated right lower lobe pulmonary nodule from 1.3 cm transverse diameter (coronal image 35 of series 5 on the prior study) to 1.6 cm on the current exam (image 41 of coronal series 6). In AP dimensions, it measures 2.3 cm compared with 4.9 cm previously (image 83 of series 7 compared with image 80 of series 6 on the prior study) and 1.2 cm craniocaudal compared with 0.9 cm previously. PLEURAL SPACE: No pleural effusions or pneumothorax. OSSEOUS & SOFT TISSUE: Similar bone erosion of the posterior right fourth rib near the costotransverse junction. ABDOMEN: Visualized upper abdomen shows narrowing of the celiac axis at its origin. IMPRESSION: 1. No pulmonary emboli. 2. Right mainstem bronchus with frothy fluid and mucus plugging in several lobes of the right lung, resulting in lobar atelectasis of the right middle lobe and probable postobstructive atelectasis or pneumonia that has worsened in the right upper lobe in the interval. An underlying neoplastic process is of concern, particularly given the erosion in the posterior right fourth rib. 3. Interval enlargement in a spiculated right lower lobe pulmonary nodule, highly suspicious for lung cancer. Electronically signed by: Ellen Weinstein MD (04/03/2020 8:10 AM) [id number]
[2020-04-03 08:35] LABS: BACTERIA,URINE FEW /HPF (0-FEW); BILIRUBIN,URINE NEG (NEG); CLARITY,URINE CLEAR; COLOR,URINE YELLOW; GLUCOSE,URINE NEG (NEG); NITRITE,URINE NEG (NEG); SQUAMOUS EPITHELIAL CELL,UR MOD /LPF; UROBILINOGEN,URINE 0.2 mg/dL (0.2 mg/dL)
[2020-04-03 09:13] VITALS: BP 123/69
--- NOTE | 2020-04-04 08:38 | NUR ---
IP: COVID-19 test results faxed to Infection Prevention at [facility].
== END 2020-04-03 09:40 | disposition short-term general hospital (02) ==
LOC: ER 05:40
DX: J96.20 Acute and chronic respiratory failure, unspecified whether with hypoxia or hypercapnia (principal); R53.1 Weakness; R05 Cough; F41.9 Anxiety disorder, unspecified; F32.9 Major depressive disorder, single episode, unspecified; J44.9 Chronic obstructive pulmonary disease, unspecified; I50.9 Heart failure, unspecified; F17.210 Nicotine dependence, cigarettes, uncomplicated; Z85.118 Personal history of other malignant neoplasm of bronchus and lung; Z98.890 Other specified postprocedural states
CPT/HCPCS: 36415; 51702; 71045; 71275; 80048; 80076; 81001; 82550; 82803; 83605; 83690; 83735; 83880; 84443; 84484; 85025; 85379; 85610; 85730; 87040; 87635; 93005; 94640; 94660; 96365; 96367; 96375; 99291; J0456; J0696; J2930; J7050; J7120